=== PATIENT | female | born 1930 | race Caucasian/White ===

== ENCOUNTER 2016-02-21 14:54 | Emergency (ER) | payer OTHER, BC ==
[~2016-02-21] VITALS: Ht 157.5 cm; Wt 55.6 kg
[2016-02-21] VITALS (7 sets, daily range): BP systolic 158–207; BP diastolic 69–96; PULSE 74–86; TEMP 36.8; O2SAT 94–99; Ht 157.5 cm; Wt 55.6 kg
[~2016-02-21 14:54] MED LIST: ACET-1311 PO; ACET1TAB84 PO; AMOX500C3 PO; BISA10SU5 PR; CALCTAB5 PO; CARB25TA16 PO; CHOL100010 PO; DOCU-94 PO; ESCI10TA17 PO; METO25TA3 PO; SIMV40TA2 PO; SODIENE PR; TRAM-10 PO
[2016-02-21] MEDS ORDERED: SODIUM CHLORIDE 0.9% 1000ML 1,000 ML IV STA (15:26)
[2016-02-21] MEDS ORDERED: ONDANSETRON INJ 2 MG/ML 2 ML VIAL IV STA (15:26)
--- NOTE | 2016-02-21 15:32 | DIAGNOSTIC IMAGING REPORT ---
RIGHT HIP 2 VIEWS CLINICAL HISTORY: Right hip pain. FINDINGS: AP and crosstable lateral views of the right hip are correlated with skeletal survey dated 05/20/2010. The skeletal structures are osteopenic. A right hip arthroplasty is again noted. There is superior and posterior dislocation of the femoral component of the arthroplasty. No periprosthetic lucency is identified. No acute fracture is seen. Sclerotic change is noted in the right sacroiliac joint. Mild soft tissue edema is present in the right thigh. IMPRESSION: 1. There is superior/posterior dislocation of the femoral component of the right hip arthroplasty with overlying soft tissue edema. 2. No fracture is seen. Electronically signed by: Brant Howe M.D. 02/21/2016 3:30 PM Dictated Date/Time: 02/21/2016 3:29 PM
[2016-02-21] MEDS: HYDROmorphone INJ 0.5 MG/0.5 ML SYR IV PRN ×2 (15:36→16:15)
[2016-02-21] MEDS ORDERED: NAPR1TAB9 PO (15:49)
[2016-02-21] MEDS ORDERED: MENT5PAD4 TOP (15:49)
[2016-02-21] MEDS ORDERED: POLY335019 PO (15:49)
[2016-02-21] MEDS ORDERED: CARB25TA12 PO (15:49)
[2016-02-21] MEDS ORDERED: PANT40TA PO (15:49)
[2016-02-21] MEDS ORDERED: POTA20TA16 PO (15:49)
[2016-02-21] MEDS ORDERED: THIA100T11 PO (15:49)
[2016-02-21] MEDS ORDERED: B-COTAB18 PO (15:49)
[2016-02-21 16:00] LABS: BASO % 0.2 %; BASO ABS # 0.01 K/uL (0-0.2); COMPLETE YES; EOS % 0.7 %; HEMATOCRIT 34.7 % (37-47); IG% 0.2 %; LYMPH % 15.3 %; LYMPH ABS # 0.67 K/uL (1.2-3.4); MEAN CELL VOLUME 90.8 fL (80-100); MEAN CORPUSCULAR HEMOGLOBIN 31.7 pg (25-34); MEAN CORPUSCULAR HGB CONC 34.9 g/dl (32-36); MEAN PLATELET VOLUME 10.3 fL (7.4-10.4); MONO % 8.4 %; NEUT % 75.2 %; PLATELET COUNT 158 K/uL (130-400); RED BLOOD COUNT 3.82 M/uL (4.2-5.4); WHITE BLOOD COUNT 4.38 K/uL (4.8-10.8)
[2016-02-21 16:16] LABS: PROTHROMBIN TIME (PATIENT) 10.7 SECONDS (9.0-12.0)
[2016-02-21 16:17] LABS: CALCIUM 9.1 mg/dl (8.5-10.1); CREATININE 0.81 mg/dl (0.60-1.20); POTASSIUM 4.3 mmol/L (3.5-5.1)
--- NOTE | 2016-02-21 16:27 | EMERGENCY ROOM VISIT NOTE ---
Pre-Mod Sedation Assessment General Date of Moderate Sedation: Feb 21, 2016. Vital Signs: Vital Signs Past 12 Hours Date Time Temp Pulse Resp B/P Pulse Ox O2 Delivery O2 Flow Rate FiO2 02/21/16 16:22 76 20 140/97 02/21/16 15:43 68 20 175/73 95 Room Air 02/21/16 15:26 73 02/21/16 15:07 36.6 71 22 200/82 97 Room Air Review Cardiovascular: regular rate, rhythm, no edema, normal peripheral pulses, + systolic murmur Abdomen: non tender, soft Lungs: lungs clear Airway Class: I Pre-Sedation Airway Assessment Short Thick Neck: No Hx of Sleep Apnea: No Smoking Status: Never Smoker Mallampati Classification: Class I ASA Classification: Class I Procedure Planning Contraindications-for Mod Sed: None Notes The planned sedation has been discussed with the patient and consent obtained. I have identified the patient, determined the appropriateness of sedation and have assessed the patient immediately prior to the procedure. All medicine(s) and interventions are by my order.
[2016-02-21] MEDS ORDERED: PROPOFOL IV EMULSION 10 MG/ML 20 ML VIAL IV ONE (16:35)
--- NOTE | 2016-02-21 17:09 | DIAGNOSTIC IMAGING REPORT ---
RIGHT HIP UNILATERAL 1 VIEW CLINICAL HISTORY: Post reduction. COMPARISON: Right hip radiograph 12/10/2016 3:20 PM FINDINGS: Alignment of the right hip arthroplasty is anatomic post reduction. No fracture is identified on this single AP projection. Trabecular coarsening and cortical thickening within the right hemipelvis is suggestive of Paget's disease. IMPRESSION: Anatomic alignment of the right hip arthroplasty following reduction. No fracture. Electronically signed by: Juancho Rock M.D. 02/21/2016 5:06 PM Dictated Date/Time: 02/21/2016 5:05 PM
--- NOTE | 2016-02-21 18:46 | ORTHOPEDIC CONSULTATION ---
DATE OF CONSULTATION: 02/21/2016 EMERGENCY ROOM CONSULTATION CHIEF COMPLAINT: Right hip pain. HISTORY OF PRESENT ILLNESS: The patient is an 85-year-old female who had previously undergone a right total hip arthroplasty in around [id number]. She had not had any difficulty with the hip until today. She was bending down, felt a pop in the hip. She presented to the Emergency Room, s-rays demonstrated a posteriorly dislocated right total hip arthroplasty. No fracture was seen. Complaining of pain in the hip. Denies radicular pain. Denies numbness or tingling in the extremity. Denies loss of consciousness. PAST MEDICAL HISTORY: Hypertension, arthritis, low back pain, coronary artery disease. PAST SURGICAL HISTORY: Includes open reduction internal fixation right acromion, right reverse total shoulder arthroplasty, right total hip arthroplasty, bilateral total knee replacements as well as revision total knee replacements. SOCIAL HISTORY: Lives in a single lisa home and is retired. FAMILY HISTORY: Noncontributory. MEDICATIONS: Zocor, vitamin D, Ecotrin, Toprol-XL, Lexapro, Caltrate, Tylenol, promethazine, and Garfield. ALLERGIES: No known drug allergies. FAMILY HISTORY: Noncontributory. REVIEW OF SYSTEMS: As above. PHYSICAL EXAMINATION: VITAL SIGNS: Afebrile. Vitals stable. GENERAL: Alert and oriented x3, in no acute distress. Mood and affect are normal. She is pleasant and cooperative with examination. HEENT: Atraumatic. CHEST: Clear. CARDIOVASCULAR: Regular rate and rhythm. ABDOMEN: Soft, nontender. EXTREMITIES: Examination of right lower extremity: The limb is shortened and internally rotated. Palpable dorsalis pedis pulse. Light touch sensation and motor function is intact in the foot. Examination of contralateral limb is unremarkable. IMAGING DATA: X-rays of the hip demonstrate a posterior superiorly dislocated right total hip arthroplasty. Post-reduction x-rays demonstrate reduction of the hip joint. ASSESSMENT: Right hip total joint dislocation. PLAN: In the Emergency Room, Dr. Stearns performed sedation and I performed a closed reduction of the right hip. She tolerated this well. We will place her in a knee immobilizer brace to limit hip flexion. She may be weightbearing as tolerated. She tolerated the procedure well. She may be discharged to home.
--- NOTE | 2016-02-21 19:24 | OPERATIVE REPORT ---
DATE OF OPERATION: 02/21/2016 PREPROCEDURE DIAGNOSIS: Right hip total hip dislocation. POSTPROCEDURE DIAGNOSIS: Same. PROCEDURE: Closed reduction, right total hip. SURGEON: Dr. Schmitt. MANAGER VOICE: None. ANESTHESIA: Moderate sedation performed by Dr. Stearns. COMPLICATIONS: None. INDICATIONS: The patient is an 85-year-old female who in 1993 had undergone a right total hip arthroplasty. She had done well and had no difficulties with the hip until today. She was bending over and felt a pop in the hip. I have discussed sedation and reduction and she wished to proceed. DESCRIPTION OF PROCEDURE: The patient was identified, laterality was confirmed. She received moderate sedation per Dr. Stearns. When she was appropriately sedated, I performed a closed reduction maneuver with 90:90 traction of the hip. We had all level as well as palpable reduction of the hip, leg lengths were restored back to normal. X-ray of the hip demonstrated concentric reduction. She tolerated the procedure well. Knee immobilizer was placed. I attest to the content of the Intraoperative Record and any orders documented therein. Any exceptio ns are noted below.
[2016-02-21] MEDS ORDERED: HYDR-5688 PO (20:05)
[2016-02-21] MEDS ORDERED: NORCO 5/325MG HOME PACK PO ONE (20:15)
--- NOTE | 2016-02-21 22:34 | EMERGENCY ROOM VISIT NOTE ---
Post-Moderate Sedation Plan General Date of Moderate Sedation Feb 21, 2016. Vital Signs: Vital Signs Past 12 Hours Date Time Temp Pulse Resp B/P Pulse Ox O2 Delivery O2 Flow Rate FiO2 02/21/16 20:24 81 20 158/69 94 02/21/16 19:30 79 20 167/88 96 Room Air 02/21/16 18:10 85 18 155/82 95 Room Air 02/21/16 17:25 36.8 86 18 181/71 94 Room Air 02/21/16 17:19 02/21/16 17:10 36.8 85 18 192/96 94 Room Air 02/21/16 16:55 74 16 171/72 97 Nasal Cannula 2.0 02/21/16 16:50 79 16 179/85 99 Nasal Cannula 2.0 02/21/16 16:45 79 20 207/84 98 Nasal Cannula 2.0 02/21/16 16:35 36.8 79 20 207/84 97 Room Air 02/21/16 16:22 76 20 140/97 02/21/16 15:43 68 20 175/73 95 Room Air 02/21/16 15:26 73 02/21/16 15:07 36.6 71 22 200/82 97 Room Air Review - Discharge Plan Post Moderate Sedation Plan: On clinical assessment, the patient appears to have tolerated the conscious sedation without complications. Patient is recovering as anticipated. Patient will continue to be monitored by nursing and may be discharged when conscious sedation discharge criteria are met.
--- NOTE | 2016-02-21 22:38 | EMERGENCY ROOM VISIT NOTE ---
History Report prepared by Joes: Phoebe Bray Under the Supervision of: Dr. Harman Stearns M.D. First contact with patient: 15:16 Chief Complaint: HIP PAIN Stated Complaint: HIP PAIN History of Present Illness The patient is a 85 year old female who presents to the Emergency Room via ALS from [facility] with complaints of right hip pain that began this afternoon. The patient was sitting in a chair and when she shifted her weight to cross her legs, she had a popping sensation to the right hip and sudden onset pain, which has been constant since then. Her pain is worse with any movement of her right leg. She was given 50 mcg Fentanyl en route. Her current discomfort is a 10/10 in severity. She denies any other injuries. The patient has a history of a right hip replacement in 1996. Her most recent full meal today was 3 hours ago. Pt denies LOC, headache, visual changes, neck pain, chest pain, breathing difficulties, nausea, vomiting, abdominal pain, back pain , numbness, weakness, open wounds, active bleeding, or other complaints. Source of History: patient Onset: this afternoon Position: other (right hip) Symptom Intensity: 10/10 Timing: constant Modifying Factors (Worsening): movement Review of Systems See HPI for pertinent positives and negatives. A total of ten systems were reviewed and were otherwise negative. 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 (3) S/p ORIF right acromion (4) S/P tonsillectomy Family History No pertinent family history Social History Smoking Status: Never Smoker Alcohol Use: none Housing Status: assisted living Occupation Status: unemployed Current/Historical Medications Scheduled Acetaminophen (Tylenol Arthritis Ext Rel), 650 MG PO TID B-Complex Vitamins (Vitamin B Complex), 1 TAB PO QAM Calcium (Caltrate), 600 MG PO QAM Carbidopa/Levodopa (Sinemet 25MG/100MG), 2 TAB PO TID Cholecalciferol (Vitamin D), 1,000 INTER.UNIT PO QAM Escitalopram (Lexapro), 20 MG PO QAM Menthol (Topical Analgesic) (Icy Hot Patch), 1 PATCH TOP QAM Metoprolol Succ (Toprol Xl) (Toprol-Xl), 25 MG PO QAM Pantoprazole (Protonix), 40 MG PO QAM Polyethylene Glycol 3350 (Miralax), 17 GM PO QAM Potassium Ext Rel (Klor-Con), 20 MEQ PO QAM Simvastatin (Zocor), 40 MG PO QPM Thiamine Hcl (Vitamin B-1), 100 MG PO QAM Scheduled PRN Hydrocodone/Acetaminophen 5MG/325MG (Sweet [place] 5MG/325MG), 0.5-2 TABS PO Q6H PRN for Pain Naproxen (Aleve), 220 MG PO Q12 PRN for Pain Allergies Coded Allergies: CI Pigment Blue 63 (Unverified Allergy, Unknown, ? reaction- obtained from neuro note , 02/21/16) Duloxetine (Unverified Allergy, Unknown, ? reaction- obtained from neuro note , 02/21/16) Milnacipran (Unverified Allergy, Unknown, ? reaction- obtained from neuro note , 02/21/16) Physical Exam Vital Signs Date Time Temp Pulse Resp B/P Pulse Ox O2 Delivery O2 Flow Rate FiO2 02/21/16 20:24 81 20 158/69 94 02/21/16 19:30 79 20 167/88 96 Room Air 02/21/16 18:10 85 18 155/82 95 Room Air 02/21/16 17:25 36.8 86 18 181/71 94 Room Air 02/21/16 17:19 02/21/16 17:10 36.8 85 18 192/96 94 Room Air 02/21/16 16:55 74 16 171/72 97 Nasal Cannula 2.0 02/21/16 16:50 79 16 179/85 99 Nasal Cannula 2.0 02/21/16 16:45 79 20 207/84 98 Nasal Cannula 2.0 02/21/16 16:35 36.8 79 20 207/84 97 Room Air 02/21/16 16:22 76 20 140/97 02/21/16 15:43 68 20 175/73 95 Room Air 02/21/16 15:26 73 02/21/16 15:07 36.6 71 22 200/82 97 Room Air Physical Exam GENERAL: Awake, alert, very uncomfortable-appearing, in mild distress HENT: Normocephalic, atraumatic. Oropharynx unremarkable. EYES: Normal conjunctiva. Sclera non-icteric. NECK: Supple. No nuchal rigidity. FROM. No JVD. RESPIRATORY: Clear to auscultation. CARDIAC: Regular rate, normal rhythm. Extremities warm and well perfused. Pulses equal. ABDOMEN: Soft, non-distended. No tenderness to palpation. No rebound or guarding. No masses. RECTAL: Deferred. MUSCULOSKELETAL: Chest examination reveals no tenderness. The back is symmetrical on inspection without obvious abnormality. There is no CVA tenderness to palpation. No joint edema. LOWER EXTREMITIES: Range of motion of the right hip is limited secondary to pain. Tenderness to the right hip. Right leg is shortened and internally rotated at the hip. The remainder of the right lower extremity is atraumatic. Calves are equal size bilaterally and non-tender. No edema. No discoloration. NEURO: Normal sensorium. No sensory or motor deficits noted. SKIN: No rash or jaundice noted. Medical Decision & Procedures ER Provider Diagnostic Interpretation: X-ray: Per my interpretation, radiologist review. RIGHT HIP 2 VIEWS CLINICAL HISTORY: Right hip pain. FINDINGS: AP and crosstable lateral views of the right hip are correlated with skeletal survey dated 05/20/2010. The skeletal structures are osteopenic. A right hip arthroplasty is again noted. There is superior and posterior dislocation of the femoral component of the arthroplasty. No periprosthetic lucency is identified. No acute fracture is seen. Sclerotic change is noted in the right sacroiliac joint. Mild soft tissue edema is present in the right thigh. IMPRESSION: 1. There is superior/posterior dislocation of the femoral component of the right hip arthroplasty with overlying soft tissue edema. 2. No fracture is seen. Electronically signed by: Brant Howe M.D. 02/21/2016 3:30 PM Dictated Date/Time: 02/21/2016 3:29 PM RIGHT HIP UNILATERAL 1 VIEW CLINICAL HISTORY: Post reduction. COMPARISON: Right hip radiograph 12/10/2016 3:20 PM FINDINGS: Alignment of the right hip arthroplasty is anatomic post reduction. No fracture is identified on this single AP projection. Trabecular coarsening and cortical thickening within the right hemipelvis is suggestive of Paget's disease. IMPRESSION: Anatomic alignment of the right hip arthroplasty following reduction. No fracture. Electronically signed by: Juancho Rock M.D. 02/21/2016 5:06 PM Dictated Date/Time: 02/21/2016 5:05 PM Laboratory Results 02/21/16 15:39 Red Blood Count 3.82, Mean Corpuscular Volume 90.8, Mean Corpuscular Hemoglobin 31.7, Mean Corpuscular Hemoglobin Concent 34.9, Mean Platelet Volume 10.3, Neutrophils (%) (Auto) 75.2, Lymphocytes (%) (Auto) 15.3, Monocytes (%) (Auto) 8.4, Eosinophils (%) (Auto) 0.7, Basophils (%) (Auto) 0.2, Neutrophils # (Auto) 3.29, Lymphocytes # (Auto) 0.67, Monocytes # (Auto) 0.37, Eosinophils # (Auto) 0.03, Basophils # (Auto) 0.01 02/21/16 15:39 Test 02/21/16 15:39 White Blood Count 4.38 K/uL (4.8-10.8) Red Blood Count 3.82 M/uL (4.2-5.4) Hemoglobin 12.1 g/dL (12.0-16.0) Hematocrit 34.7 % (37-47) Mean Corpuscular Volume 90.8 fL (80-100) Mean Corpuscular Hemoglobin 31.7 pg (25-34) Mean Corpuscular Hemoglobin Concent 34.9 g/dl (32-36) Platelet Count 158 K/uL (130-400) Mean Platelet Volume 10.3 fL (7.4-10.4) Neutrophils (%) (Auto) 75.2 % Lymphocytes (%) (Auto) 15.3 % Monocytes (%) (Auto) 8.4 % Eosinophils (%) (Auto) 0.7 % Basophils (%) (Auto) 0.2 % Neutrophils # (Auto) 3.29 K/uL (1.4-6.5) Lymphocytes # (Auto) 0.67 K/uL (1.2-3.4) Monocytes # (Auto) 0.37 K/uL (0.11-0.59) Eosinophils # (Auto) 0.03 K/uL (0-0.5) Basophils # (Auto) 0.01 K/uL (0-0.2) RDW Standard Deviation 43.8 fL (36.4-46.3) RDW Coefficient of Variation 13.2 % (11.5-14.5) Immature Granulocyte % (Auto) 0.2 % Immature Granulocyte # (Auto) 0.01 K/uL (0.00-0.02) Prothrombin Time 10.7 SECONDS (9.0-12.0) Prothromb Time International Ratio 1.0 (0.9-1.1) Activated Partial Thromboplast Time 25.4 SECONDS (21.0-31.0) Partial Thromboplastin Ratio 1.0 Anion Gap 8.0 mmol/L (3-11) Est Creatinine Clear Calc Drug Dose 40.2 ml/min Estimated GFR () 76.8 Estimated GFR (Non- 66.2 BUN/Creatinine Ratio 28.0 (10-20) Calcium Level 9.1 mg/dl (8.5-10.1) Laboratory results reviewed by me Medications Administered Medications (Trade) Dose Ordered Sig/Genet Route Start Time Stop Time Status Last Admin Dose Admin Hydromorphone HCl (Dilaudid Inj) 0.5 mg Q10M PRN IV 02/21/16 15:30 02/21/16 20:50 DC 02/21/16 16:15 0.5 MG Ondansetron HCl 4 mg 4 mg NOW STAT IV 02/21/16 15:26 02/21/16 15:27 DC 02/21/16 15:36 4 MG Sodium Chloride (Nss 1000ml) 1,000 ml @ 125 mls/hr Q8H STAT IV 02/21/16 15:26 02/21/16 20:50 DC 02/21/16 15:26 125 MLS/HR Acetaminophen/ Hydrocodone Bitart (Sweet [place] 5/325mg Home Pack) 1 homepack UD ONCE PO 02/21/16 20:15 02/21/16 20:16 DC 02/21/16 20:18 1 HOMEPACK Procedure Procedural Sedation Indication Right hip dislocation. Total time: 16 minutes. Written consent was obtained after the risks and benefits were explained to the patient, including, but not limited to aspiration, allergic reaction, breathing difficulties, cardiac complications, vomiting, pain, event recall, bleeding, and /or infection. Pre-sedation examination and paperwork completed. The patient was on 100% oxygen via NRB prior to the procedure. Continous end tidal CO2 monitoring, pulse oximetry, and cardiac monitoring were utilized. Suction, airway equipment, medications, respiratory equipment, and appropriate personnel were prepared prior to the initiation of the procedure. A time out was taken. Sedation was achieved utilizing 40 mg of Propofol. After I observed the patient had reached the appropriate level of sedation the main procedure was performed without complication. Sedation was discontinued and the monitoring continued. The patient recovered quickly from the effects of the medication without complication or adverse event. ED Course 1522: The patient was evaluated in room C6. A complete history and physical exam was performed. 1526: Ordered NSS 1000 ml @ 125 mls/hr IV, Zofran Inj 4 mg IV, Dilaudid Inj 0.5 mg IV. 1558: I discussed the case with Dr. Schmitt - Orthopedic Surgery. He will see the patient. 1639: I performed a procedural sedation while Dr. Schmitt relocated the patient' s hip. See procedure note above. 1928: I reevaluated the patient. She was feeling much better. Discussed results and discharge instructions: She verbalized understanding and agreement. The patient is ready for discharge. Medical Decision Prior records reviewed and summarized above. Triage Nursing notes reviewed and agree them. The patient's history was concerning for traumatic injury. Differential diagnosis: Etiologies such as fracture, dislocation, neurovascular compromise, compartment syndrome, soft tissue injury, as well as others were entertained. Physical examination: Consistent with an isolated right hip injury. ER treatment provided: Normal saline hydration IV Dilaudid and IV Zofran On reassessment the patient felt better. Procedural sedation by me and hip reduction by orthopedics Diagnostics interpreted by me: The labs revealed an unremarkable CBC, coags, and chemistry panel. Imaging studies: Xrays as above. Consultation: A consultation was placed with the orthopedist, Dr Sen. [email or web address] The case was discussed and diagnostics were reviewed. The patient was evaluated in the ER for further treatment. The patient has an isolated right hip fracture and she was sedated by me. This was done 4 hours after she had her last oral intake. The indication was emergent as she had the dislocated hip. The patient was given a 0.5 mg/kg bolus of propofol and then an additional 15 mg and that worked very well to make her lightly sedated and unaware of the situation. Hip was easily reduced by orthopedics. The patient recovered uneventfully. She was placed in a knee immobilizer as directed by orthopedics. She will be treated with low-dose hydrocodone. I did discuss risks and benefits of this medication. She will start with a half pill. She will follow-up with orthopedics next week. The patient was kept in the emergency department for an extended. She recovered without difficulty. She was able to ambulate. Family presented to the Emergency Room. I went over all the issues with her.I gave my usual and customary discussion regarding this issue. By the evaluation outlined above emergent etiologies such as fracture, neurovascular compromise, compartment syndrome, infections, as well as others were deemed relatively unlikely. The patient and family were informed about the findings as listed above. All questions were answered and they were pleased with the treatment. Return instructions were outlined and the patient was discharged in stable condition. Prescription management: Hydrocodone Referral: The patient was referred to [facility] for follow-up care. The chart was completed utilizing [employer] Speech voice recognition software. Grammatical errors, random word insertions, pronoun errors, and incomplete sentences are an occasional consequence of this system due to software limitations, ambient noise, and hardware issues. Any formal questions or concerns about the content, text, or information contained within the body of this dictation should be directly addressed to the physician for clarification. Consults Time Called: 1523 Consulting Physician: Dr. Schmitt - Orthopedic Surgery Returned Call: [phone] I discussed the case with him. He will see the patient. Impression Primary Impression: Dislocation of hip, right, closed Scribe Attestation The scribe's documentation has been prepared under my direction and personally reviewed by me in its entirety. I confirm that the note above accurately reflects all work, treatment, procedures, and medical decision making performed by me. Departure Information Dispostion Home / Self-Care Prescriptions Hydrocodone/Acetaminophen 5MG/325MG ([place] 5MG/325MG) Tab 0.5-2 TABS PO Q6H Y for Pain, #20 TAB Prov: Harman Stearns MD 02/21/16 Referrals [facility] (PCP) Patient Instructions A Signature Page, My [facility] Additional Instructions ORTHOPEDIC INSTRUCTIONS: Diagnosis: Hip dislocation DO NOT drive, drink alcohol, operate machinery, or perform dangerous activities today. You were given medications in the ER that can affect your ability to safely function or operate a vehicle. Hydrocodone/acetaminophen 5/325mg: Take 0.5-2 pills every 6 hours as needed for pain. Avoid additional Acetaminophen/Tylenol, alcohol, operating machinery or dangerous equipment, working on ladders or roofs, DRIVING, or situations where being under the influence may be dangerous. It is recommended to use a stool softener such as Colace, 100mg twice daily while taking this medication to avoid constipation. Ice compresses for 20 minutes at a time four times daily for 2-3 days. Use the walker and knee immobilizer as instructed by orthopedics. Rest your injury. Return to the ER immediately for any numbness, tingling, severe pain, extreme swelling in the extremity or as needed. Call [facility], [phone], Wednesday to arrange follow up for your injury with Dr Schmitt.
== END 2016-02-21 20:26 | disposition home or self-care (01) ==
LOC: EDBD 14:54 → C.EDC 14:55 → C.EDB 20:26
DX: T84.020A Dislocation of internal right hip prosthesis, initial encounter (principal); X50.1XXA Overexertion from prolonged static or awkward postures, initial encounter; Y92.098 Other place in other non-institutional residence as the place of occurrence of the external cause; I10 Essential (primary) hypertension; I25.10 Atherosclerotic heart disease of native coronary artery without angina pectoris; Z96.641 Presence of right artificial hip joint; E78.5 Hyperlipidemia, unspecified; M19.90 Unspecified osteoarthritis, unspecified site; G93.41 Metabolic encephalopathy; Z96.653 Presence of artificial knee joint, bilateral; Z79.899 Other long term (current) drug therapy

== ENCOUNTER 2016-03-15 13:07 | Emergency (ER) | payer OTHER, BC ==
[~2016-03-15] VITALS: Ht 157.5 cm; Wt 49.4 kg
[~2016-03-15 13:07] MED LIST changes: -ACET-1311 PO; -AMOX500C3 PO; +B-COTAB18 PO; -BISA10SU5 PR; +CARB25TA12 PO; -CARB25TA16 PO; -DOCU-94 PO; +HYDR-5688 PO; +MENT5PAD4 TOP; +NAPR1TAB9 PO; +PANT40TA PO; +POLY335019 PO; +POTA20TA16 PO; -SODIENE PR; +THIA100T11 PO; -TRAM-10 PO
[2016-03-15 13:17] VITALS: TEMP 36.5; Ht 157.5 cm; Wt 49.4 kg
[2016-03-15] MEDS ORDERED: ONDANSETRON INJ 2 MG/ML 2 ML VIAL IV PRN (13:30)
--- NOTE | 2016-03-15 13:30 | EMERGENCY ROOM VISIT NOTE ---
History Report prepared by Jose: Nishant Joseph Under the Supervision of: Dr. Wali Hays M.D. First contact with patient: 13:18 Chief Complaint: HIP PAIN Stated Complaint: RIGHT HIP DISLOCATION History of Present Illness The patient is a 85 year old female who presents to the Emergency Room via EMS with complaints of sharp right hip pain that began [employer]. She rates her pain a 10/ 10 in severity. The patient was seen in the ED on 21 February 2016 for a hip dislocation as well. She has a past medical history of a right hip replacement. The patient was sitting in a chair, when she lifted her leg and her hip dislocated. She notes that she had toast and coffee at 0800 this morning. She is experiencing shakiness secondary to her pain. She denies any nausea. Source of History: patient Onset: [employer] Position: other (hip - right) Symptom Intensity: 10/10 Quality: sharp Timing: other (persistent) Associated Symptoms: No nausea Note: She is experiencing some shakiness from her pain. Review of Systems All systems have been listed, reviewed, and are negative other than those previously mentioned. Please see Additional Medical History Sheet. 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 (3) S/p ORIF right acromion (4) S/P tonsillectomy Family History No pertinent family history Social History Smoking Status: Never Smoker Alcohol Use: none Drug Use: none Housing Status: assisted living Occupation Status: unemployed Current/Historical Medications Scheduled Acetaminophen (Tylenol Arthritis Ext Rel), 650 MG PO TID B-Complex Vitamins (Vitamin B Complex), 1 TAB PO QAM Calcium (Caltrate), 600 MG PO QAM Carbidopa/Levodopa (Sinemet 25MG/100MG), 2 TAB PO TID Docusate Sodium (Colace), 1 CAP PO BID Escitalopram (Lexapro), 20 MG PO QAM Menthol (Topical Analgesic) (Icy Hot Patch), 1 PATCH TOP QAM Metoprolol Succ (Toprol Xl) (Toprol-Xl), 25 MG PO QAM Pantoprazole (Protonix), 40 MG PO QAM Polyethylene Glycol 3350 (Miralax), 17 GM PO QAM Potassium Ext Rel (Klor-Con), 20 MEQ PO QAM Simvastatin (Zocor), 40 MG PO QPM Thiamine Hcl (Vitamin B-1), 100 MG PO DAILY Scheduled PRN Naproxen (Aleve), 220 MG PO Q12 PRN for Pain Allergies Coded Allergies: Tramadol (Unverified Allergy, Intermediate, "GOES CRAZY", 03/15/16) CI Pigment Blue 63 (Unverified Allergy, Unknown, ? reaction- obtained from neuro note , 02/21/16) Duloxetine (Unverified Allergy, Unknown, ? reaction- obtained from neuro note , 02/21/16) Milnacipran (Unverified Allergy, Unknown, ? reaction- obtained from neuro note , 02/21/16) Physical Exam Vital Signs Date Time Temp Pulse Resp B/P Pulse Ox O2 Delivery O2 Flow Rate FiO2 03/15/16 16:00 76 18 178/62 94 Room Air 03/15/16 15:42 72 18 188/70 93 Room Air 03/15/16 15:25 79 18 118/66 96 Room Air 03/15/16 15:20 75 20 178/69 96 Room Air 03/15/16 15:10 68 18 117/57 99 Non-Rebreather 03/15/16 15:04 68 18 148/46 98 Room Air 03/15/16 15:00 68 16 155/64 90 Non-Rebreather 10.0 03/15/16 15:00 64 16 151/62 99 Non-Rebreather 10.0 03/15/16 14:55 68 18 151/62 98 Room Air 03/15/16 14:42 73 16 177/78 94 Room Air 03/15/16 13:48 68 03/15/16 13:22 97 Room Air 03/15/16 13:17 36.5 80 24 199/76 97 Room Air Physical Exam GENERAL: Patient awake, alert, oriented x 3. Patient follows commands. Patient does not appear toxic. Patient is adequately hydrated and well- nourished. SKIN: No erythema, pallor, cyanosis or rash HEENT: Normal head, pupils equal, reactive to light and accommodation. LUNGS: Clear to auscultation. No wheezes, no rales, no rhonchi. HEART: 2/6 systolic murmur. No gallops. No rubs. ABDOMEN: Soft, nontender. EXTREMITIES: No signs of trauma. No pedal or pretibial edema. No calf or thigh tenderness. Right hip is internally rotated. There is a well healed scar over the right hip. NEUROLOGIC: Cranial nerves II-XII within normal limits. No gross motor sensory function deficits. Medical Decision & Procedures ER Provider Diagnostic Interpretation: X ray results are stated below per my interpretation and the radiologist's interpretation. RIGHT HIP 2 VIEWS CLINICAL HISTORY: Right hip pain. FINDINGS: AP and crosstable lateral views of the right hip are correlated with a prior study on 02/21/2016. The skeletal structures are osteopenic. A right hip arthroplasty is again noted. There is superior and posterior dislocation of the femoral component of the arthroplasty. No periprosthetic lucency is identified. No acute fracture is seen. Sclerotic change is noted in the right sacroiliac joint. Mild soft tissue edema is present in the right thigh. IMPRESSION: 1. There is superior/posterior dislocation of the femoral component of the right hip arthroplasty with overlying soft tissue edema. 2. No fracture is seen. Electronically signed by: Jun Jacobson M.D. 03/15/2016 1:52 PM Dictated Date/Time: 03/15/2016 1:51 PM RIGHT HIP UNILATERAL 1 VIEW CLINICAL HISTORY: RIGHT HIP DISLOCATION Right dislocation COMPARISON: Prior study same date DISCUSSION: Anatomic alignment status post closed reduction. No evidence dislocation. Coarsening trabecular pattern right hemipelvis considered chronic. IMPRESSION: Anatomic alignment status post closed reduction Electronically signed by: Bean Morales M.D. 03/15/2016 3:20 PM Dictated Date/Time: 03/15/2016 3:19 PM Laboratory Results 03/15/16 14:38 03/15/16 14:38 Test 03/15/16 14:38 Red Blood Count 3.56 M/uL (4.2-5.4) Mean Corpuscular Volume 91.3 fL (80-100) Mean Corpuscular Hemoglobin 31.5 pg (25-34) Mean Corpuscular Hemoglobin Concent 34.5 g/dl (32-36) RDW Standard Deviation 43.7 fL (36.4-46.3) RDW Coefficient of Variation 13.0 % (11.5-14.5) Mean Platelet Volume 10.0 fL (7.4-10.4) Anion Gap 9.0 mmol/L (3-11) Est Creatinine Clear Calc Drug Dose 42.8 ml/min Estimated GFR () 84.2 Estimated GFR (Non- 72.7 BUN/Creatinine Ratio 29.5 (10-20) Calcium Level 8.6 mg/dl (8.5-10.1) Laboratory results as stated above per my review. Medications Administered Medications (Trade) Dose Ordered Sig/[facility] Route Start Time Stop Time Status Last Admin Dose Admin Morphine Sulfate (MoRPHine SULFATE INJ) 6 mg Q1H PRN IV 03/15/16 13:30 03/15/16 16:39 DC 03/15/16 14:42 6 MG Procedure Procedural Sedation Indication: Right hip dislocation. Total time: 20 minutes. Written consent was obtained after the risks and benefits were explained to the patient, including, but not limited to aspiration, allergic reaction, breathing difficulties, cardiac complications, vomiting, pain, event recall, bleeding, and /or infection. Pre-sedation examination and paperwork completed. The patient was on room air prior to the procedure. Continuous end tidal CO2 monitoring, pulse oximetry, and cardiac monitoring were utilized. Suction, airway equipment , medications, respiratory equipment, and appropriate personnel were prepared prior to the initiation of the procedure. A time out was taken. Sedation was achieved utilizing 25 mg of Propofol. After I observed the patient had reached the appropriate level of sedation the main procedure was performed without complication. Sedation was discontinued and the monitoring continued. The patient recovered quickly from the effects of the medication without complication or adverse event. ECG Indication: other (hip pain) Rate (beats per minute): 66 Rhythm: normal sinus Findings: no acute ischemic change, no ectopy, other (Left ventricular hypertrophy) ED Course 1318: Past medical records reviewed. The patient was evaluated in room B7. A complete history and physical examination was performed. 1330: Zofran Inj 4 mg IV, Morphine Sulfate 6 mg IV 1430: I called Dr. Vegas of [facility] at this time. He will be coming to the ED to reduce the patient's hip. 1450: Propofol 200 mg IV 1455: I performed a Procedural Sedation at this time. Please see the procedure note. 1605: I informed the patient and her son at this time. We discussed her results. She is ready to be discharged. 1620: Upon reevaluation, the patient appeared to have improvement of her symptoms. I discussed today's findings with her. She verbalized agreement of the treatment plan. She was discharged home. Medical Decision Nurses notes reviewed. Medical history sheet reviewed. Differential diagnosis includes but is not limited to: hip fracture and hip dislocation. The patient was treated for right hip dislocation. She has had another similar dislocation earlier this month. Labs, EKG and imaging were obtained prior to reduction to make sure the patient was safe for the procedure. A preprocedural evaluation was performed. Consent was signed. The hip was reduced using conscious sedation. I performed the conscious sedation while Dr. Vegas did the actual reduction. Patient tolerated the procedure well. Post op x-ray reveals the hip is back in place. The patient will require follow-up by orthopedics. The patient may require some further intervention to prevent future dislocations. Consults Time Called: 1430 Consulting Physician: Dr. Vegas - [facility] Returned Call: [phone] He will be coming to the ED to reduce the patient's hip. Impression Primary Impression: Dislocation of hip, right, closed Scribe Attestation The scribe's documentation has been prepared under my direction and personally reviewed by me in its entirety. I confirm that the note above accurately reflects all work, treatment, procedures, and medical decision making performed by me. Departure Information Dispostion Home / Self-Care Referrals [facility] (PCP) Andres Vegas D.O. Forms HOME CARE DOCUMENTATION FORM, IMPORTANT VISIT INFORMATION, WORK / SCHOOL INSTRUCTIONS Patient Instructions My [facility] Additional Instructions Continue all of your current medications as prescribed. Follow-up with with orthopedics this week. Call for an appointment on Wednesday.
[2016-03-15] MEDS: MoRPHine SULFATE 10 MG/ML CARP/VIAL IV PRN ×2 (13:33→14:42)
--- NOTE | 2016-03-15 13:53 | DIAGNOSTIC IMAGING REPORT ---
RIGHT HIP 2 VIEWS CLINICAL HISTORY: Right hip pain. FINDINGS: AP and crosstable lateral views of the right hip are correlated with a prior study on 02/21/2016. The skeletal structures are osteopenic. A right hip arthroplasty is again noted. There is superior and posterior dislocation of the femoral component of the arthroplasty. No periprosthetic lucency is identified. No acute fracture is seen. Sclerotic change is noted in the right sacroiliac joint. Mild soft tissue edema is present in the right thigh. IMPRESSION: 1. There is superior/posterior dislocation of the femoral component of the right hip arthroplasty with overlying soft tissue edema. 2. No fracture is seen. Electronically signed by: Jun Jacobson M.D. 03/15/2016 1:52 PM Dictated Date/Time: 03/15/2016 1:51 PM
[2016-03-15] MEDS ORDERED: THIA100T11 PO (14:24)
[2016-03-15] MEDS ORDERED: DOCU-94 PO (14:24)
[2016-03-15 14:48] LABS: HEMATOCRIT 32.5 % (37-47); MEAN CELL VOLUME 91.3 fL (80-100); MEAN CORPUSCULAR HEMOGLOBIN 31.5 pg (25-34); MEAN CORPUSCULAR HGB CONC 34.5 g/dl (32-36); PLATELET COUNT 168 K/uL (130-400); RED BLOOD COUNT 3.56 M/uL (4.2-5.4); WHITE BLOOD COUNT 4.62 K/uL (4.8-10.8)
[2016-03-15] MEDS ORDERED: PROPOFOL IV EMULSION 10 MG/ML 20 ML VIAL IV ONE (14:50)
[2016-03-15 15:00] VITALS: BP 151/62; PULSE 64; O2SAT 99
[2016-03-15 15:04] VITALS: BP 148/46; PULSE 68; O2SAT 98
[2016-03-15 15:06] LABS: BUN/CREATININE RATIO 29.5 (10-20); CALCIUM 8.6 mg/dl (8.5-10.1); CREATININE 0.75 mg/dl (0.60-1.20); POTASSIUM 4.2 mmol/L (3.5-5.1)
[2016-03-15 15:20] VITALS: BP 178/69; PULSE 75; O2SAT 96
--- NOTE | 2016-03-15 15:22 | DIAGNOSTIC IMAGING REPORT ---
RIGHT HIP UNILATERAL 1 VIEW CLINICAL HISTORY: RIGHT HIP DISLOCATION Right dislocation COMPARISON: Prior study same date DISCUSSION: Anatomic alignment status post closed reduction. No evidence dislocation. Coarsening trabecular pattern right hemipelvis considered chronic. IMPRESSION: Anatomic alignment status post closed reduction Electronically signed by: Bean Morales M.D. 03/15/2016 3:20 PM Dictated Date/Time: 03/15/2016 3:19 PM
[2016-03-15 16:00] VITALS: BP 178/62; PULSE 76; O2SAT 94
--- NOTE | 2016-03-15 16:07 | ORTHOPEDIC CONSULTATION ---
DATE OF CONSULTATION: 03/15/2016 HISTORY OF PRESENT ILLNESS: This is an 85-year-old female seen at the request of the Emergency Department for dislocation of right total hip prosthesis. The patient was at her home in the [place] and went to cross her legs and felt a painful pop in her right hip. She is unable to ambulate. She was then transported to [facility] via EMS with x-rays performed noting a dislocation of total hip arthroplasty. The patient had previously been in the Emergency Department on 02/21/2016 for a hip dislocation, which underwent closed reduction. The patient was seen in followup with Dr. Schmitt and noted to have a reduced hip with good function and plan was to treat conservatively. The patient now presents today with redislocation of the right total hip prosthesis. PAST MEDICAL HISTORY: Osteoarthritis, metabolic encephalopathy, hypertension, fever, dyslipidemia, depression, confusion, right knee DJD. PAST SURGICAL HISTORY: Right total hip arthroplasty 20 years ago by a surgeon in the [place] area, history arthroscopy of the right shoulder, left total knee replacement, ORIF right acromion and tonsillectomy. ALLERGIES: CI PIGMENT BLUE 63, UNKNOWN REACTION; DULOXETINE, UNKNOWN REACTION; MILNACIPRAN, UNKNOWN REACTION. MEDICATIONS: Please see the medications list is in the medical record. SOCIAL HISTORY: Denies tobacco, drug or alcohol use. She lives in assisted living, in [facility] and she is retired. PHYSICAL EXAMINATION: GENERAL: This is an 85-year-old woman who is present with her son at bedside. She is alert and oriented and reasonably conversant. Obvious discomfort from right hip dislocation. EXTREMITIES: Examination of the lower extremities demonstrates an internally rotated and shortened right lower extremity. Difficulty with any active or passive range of motion of the right hip. Well-healed surgical incision is noted. Skin is warm, dry and intact. Cap refill less than 2 seconds. Dorsalis pedis and posterior pulses are palpable. Toes pink and warm. Radiographs of the right hip demonstrate dislocated right hip prosthesis. No obvious fracture, no obvious lucency around the acetabular or femoral components. There appears to be no obvious subsidence of the implants. The dislocation is a posterior dislocation. IMPRESSION: Right total hip arthroplasty dislocation, second dislocation within 30 days. RECOMMENDATIONS: For closed reduction with sedation, use of his hip precautions and consultation for possible revision arthroplasty. PROCEDURE: After obtaining written and verbal consent from the patient and her son, the patient was then monitored and the Emergency Department physician then administered sedative agents. The patient was sedated and then gentle closed reduction maneuver was performed of the right hip with closed reduction maneuver successful. The hip was reduced. Leg lengths were equal. Post-reduction radiographs were obtained noting adequate reduction of the right total hip prosthesis. No bone fractures were noted. The patient was then awakened and discharged home with hip precautions and instructions to follow up in my office for evaluation for possible revision of total hip arthroplasty. Thank you for the opportunity to consult in the care of this patient.
== END 2016-03-15 16:31 | disposition home or self-care (01) ==
LOC: EDBD 13:07 → C.EDB 13:08
DX: M24.451 Recurrent dislocation, right hip (principal); E78.5 Hyperlipidemia, unspecified; I10 Essential (primary) hypertension; F32.9 Major depressive disorder, single episode, unspecified; M19.90 Unspecified osteoarthritis, unspecified site; Z96.641 Presence of right artificial hip joint; Z98.890 Other specified postprocedural states; Z79.899 Other long term (current) drug therapy; Z88.8 Allergy status to other drugs, medicaments and biological substances

== ENCOUNTER → 2016-08-04 | Outpatient (CLI) | payer OTHER, BC ==
[~2016-08-04] MED LIST changes: +CALC-393 PO; +CHOL1000 PO; -CHOL100010 PO; +DOCU-94 PO; +MCRK20 PO; +TPRSR25 PO
[2016-08-04 11:43] LABS: BASO % 0.2 %; BASO ABS # 0.01 K/uL (0-0.2); COMPLETE YES; EOS % 0.6 %; HEMATOCRIT 37.9 % (37-47); IG% 0.2 %; LYMPH ABS # 1.21 K/uL (1.2-3.4); MEAN CORPUSCULAR HEMOGLOBIN 30.3 pg (25-34); MEAN CORPUSCULAR HGB CONC 31.9 g/dl (32-36); MEAN PLATELET VOLUME 10.5 fL (7.4-10.4); MONO % 9.3 %; NEUT % 64.7 %; PLATELET COUNT 202 K/uL (130-400); RED BLOOD COUNT 3.99 M/uL (4.2-5.4); WHITE BLOOD COUNT 4.84 K/uL (4.8-10.8)
[2016-08-04 11:55] LABS: ALT/SGPT 10 U/L (12-78); BLOOD UREA NITROGEN 22 mg/dl (7-18); BUN/CREATININE RATIO 31.1 (10-20); C-REACTIVE PROTEIN < 0.29 mg/dl (0-0.29); CARBON DIOXIDE 30 mmol/L (21-32); CHLORIDE 106 mmol/L (98-107); CREATININE 0.72 mg/dl (0.60-1.20); GLUCOSE 85 mg/dl (70-99); POTASSIUM 4.1 mmol/L (3.5-5.1); SODIUM 143 mmol/L (136-145)
[2016-08-04 11:56] LABS: ALB/GLOB RATIO 1.4 (0.9-2); ALKALINE PHOSPHATASE 107 U/L (45-117); AST/SGOT 21 U/L (15-37)
[2016-08-04 12:01] LABS: CALCIUM 9.2 mg/dl (8.5-10.1)
== END | disposition home or self-care (01) ==
LOC: C.LABVPSUW 10:31
PROVIDERS: ATTEND Internal Medicine Critical Care Medicine
DX: D64.9 Anemia, unspecified (principal); M79.1 Myalgia; M19.90 Unspecified osteoarthritis, unspecified site; I77.6 Arteritis, unspecified

== ENCOUNTER 2016-08-30 09:51 | Emergency (ER) | payer OTHER, BC ==
[~2016-08-30] VITALS: Ht 157.5 cm; Wt 49.0 kg
[~2016-08-30 09:51] MED LIST changes: -CALC-393 PO; -CHOL1000 PO; -HYDR-5688 PO; -MCRK20 PO; -TPRSR25 PO
[2016-08-30 09:57] VITALS: TEMP 36.4; Ht 157.5 cm; Wt 49.0 kg
[2016-08-30] MEDS ORDERED: CALC-393 PO (10:18)
--- NOTE | 2016-08-30 11:18 | DIAGNOSTIC IMAGING REPORT ---
LEFT KNEE 3 VIEWS CLINICAL HISTORY: eval for fx with sunrise view trauma COMPARISON: None. DISCUSSION: Evidence for a total left knee revision type procedure. Subtle lucency surrounding the femoral prosthetic which may indicate a component of loosening. No evidence for fracture. Degenerative change of the residual components of the knee. There is no evidence for soft tissue swelling. IMPRESSION: Degenerative and postoperative change. No acute bony abnormality. Probable loosening of the femoral prosthetic The above report was generated using voice recognition software. It may contain grammatical, syntax or spelling errors. Electronically signed by: Bean Morales M.D. 08/30/2016 11:17 AM Dictated Date/Time: 08/30/2016 11:15 AM
--- NOTE | 2016-08-30 11:20 | DIAGNOSTIC IMAGING REPORT ---
LEFT TIBIA/FIBULA 2 VIEWS ROUTINE CLINICAL HISTORY: eval for fx trauma COMPARISON: None. DISCUSSION: Total left knee prosthetic. No evidence for acute bony pathology. Cortical margins appear to be intact. There is no evidence for soft tissue swelling. IMPRESSION: No acute process.. Total left knee prosthetic. The above report was generated using voice recognition software. It may contain grammatical, syntax or spelling errors. Electronically signed by: Bean Morales M.D. 08/30/2016 11:18 AM Dictated Date/Time: 08/30/2016 11:18 AM
[2016-08-30 11:38] VITALS: BP 187/73; PULSE 57; O2SAT 99
--- NOTE | 2016-08-30 15:49 | EMERGENCY ROOM VISIT NOTE ---
History Report prepared by Jose: Will De Los Santos Under the Supervision of: Dr. Chandrakant Coulter M.D. First contact with patient: 10:04 Chief Complaint: KNEEPAIN Stated Complaint: LEFT KNEE PAIN History of Present Illness The patient is an 85 year old female who presents to the Emergency Room with complaints of persistent left knee pain that began yesterday. The patient states that she tripped over the wheel of her walker and fell onto her left knee yesterday. She states that her pain has been persistent since the fall. The patient denies any other injury due to the fall and denies hitting her head. She states that she has been feeling okay otherwise. The patient states that she cannot put any weight on her left knee without pain. She reports a surgical history of a left knee replacement. The patient denies any fever, vomiting, or abdominal pain. The patient's son notes that the patient has been complaining of increased pain in her left knee over the past year. Source of History: patient, family (son) Onset: yesterday Position: knee (left) Timing: other (persistent) Associated Symptoms: No fevers, No vomiting, No abdominal pain Note: Associated Symptoms: difficulty ambulating due to pain Review of Systems See HPI for pertinent positives & negatives. A total of 6 systems reviewed and were otherwise negative. 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 (3) S/p ORIF right acromion (4) S/P tonsillectomy Family History No pertinent family history Social History Smoking Status: Never Smoker Alcohol Use: none Drug Use: none Housing Status: assisted living Occupation Status: unemployed Current/Historical Medications Scheduled Acetaminophen (Tylenol Arthritis Ext Rel), 650 MG PO TID B-Complex Vitamins (Vitamin B Complex), 1 TAB PO QAM Calcium Carbonate (Calcium), 600 MG PO QAM Carbidopa/Levodopa (Sinemet 25MG/100MG), 2 TAB PO TID Docusate Sodium (Colace), 1 CAP PO BID Escitalopram (Lexapro), 10 MG PO QAM Menthol (Topical Analgesic) (Icy Hot Patch), 1 PATCH TOP QAM Metoprolol Succ (Toprol Xl) (Toprol-Xl), 25 MG PO QAM Pantoprazole (Protonix), 40 MG PO QAM Thiamine Hcl (Vitamin B-1), 100 MG PO DAILY Scheduled PRN Naproxen (Aleve), 220 MG PO Q12 PRN for Pain Allergies Coded Allergies: Tramadol (Unverified Allergy, Intermediate, "GOES CRAZY", 08/30/16) CI Pigment Blue 63 (Unverified Allergy, Unknown, ? reaction- obtained from neuro note , 08/30/16) Duloxetine (Unverified Allergy, Unknown, ? reaction- obtained from neuro note , 08/30/16) Milnacipran (Unverified Allergy, Unknown, ? reaction- obtained from neuro note , 08/30/16) Physical Exam Vital Signs Date Time Temp Pulse Resp B/P (MAP) Pulse Ox O2 Delivery O2 Flow Rate FiO2 08/30/16 11:38 57 18 187/73 99 Room Air 08/30/16 09:57 36.4 64 18 144/63 96 Room Air Physical Exam Constitutional: Vital signs reviewed. Respiratory: Clear to auscultation bilaterally. Breath sounds are equal bilaterally. Cardiovascular: Regular rate and rhythm. No rubs or gallops. Musculoskeletal: Diffuse anterior tenderness to the left knee, no deformity or joint laxity of the left knee. No peripheral edema. Integumentary: No cyanosis. Neurological: The patient is awake and alert. No focal deficits. Psychiatric: Normal affect. Medical Decision & Procedures ER Provider Diagnostic Interpretation: X-ray results as stated below per interpretation by me and the radiologist: LEFT TIBIA/FIBULA 2 VIEWS ROUTINE CLINICAL HISTORY: eval for fx trauma COMPARISON: None. DISCUSSION: Total left knee prosthetic. No evidence for acute bony pathology. Cortical margins appear to be intact. There is no evidence for soft tissue swelling. IMPRESSION: No acute process.. Total left knee prosthetic. The above report was generated using voice recognition software. It may contain grammatical, syntax or spelling errors. Electronically signed by: Bean Morales M.D. 08/30/2016 11:18 AM Dictated Date/Time: 08/30/2016 11:18 AM LEFT KNEE 3 VIEWS CLINICAL HISTORY: eval for fx with sunrise view trauma COMPARISON: None. DISCUSSION: Evidence for a total left knee revision type procedure. Subtle lucency surrounding the femoral prosthetic which may indicate a component of loosening. No evidence for fracture. Degenerative change of the residual components of the knee. There is no evidence for soft tissue swelling. IMPRESSION: Degenerative and postoperative change. No acute bony abnormality. Probable loosening of the femoral prosthetic The above report was generated using voice recognition software. It may contain grammatical, syntax or spelling errors. Electronically signed by: Bean Morales M.D. 08/30/2016 11:17 AM Dictated Date/Time: 08/30/2016 11:15 AM ED Course 1006: The patient was evaluated in room A9B. A complete history and physical exam was performed. 1128: I reevaluated the patient and she is resting. I discussed the x-ray findings with her. Orthopedics will be consulted. 1130: I discussed the patients case with Dr. Schmitt, Orthopedics. He is going to look at the x-rays and call back. 1138: I discussed the patients case with Dr. Schmitt, Orthopedics. He states that he compared x-rays done from June in the office and states that they look the same. He recommends a knee immobilizer and follow-up in the office. 1148: I reevaluated the patient and she is resting comfortably. I discussed the exam findings with her and I discussed the treatment plan. She verbalized complete understanding and agreement. She is ready to go home. Medical Decision This is an 85-year-old female who presents with left knee pain after fall. Differential diagnosis includes fracture, contusion, hardware displacement, effusion. I did perform a limited focused review of portions of the patient's old chart on the electronic medical record. The patient has had no recent pertinent visits to this hospital. Blood Pressure Screening: Patient was found to have an elevated blood pressure and was referred to their primary doctor for recheck and further treatment. Medication Reconciliation: I attest that I have personally reviewed the patient' s current medication list. I did evaluate the patient as noted above. I did order and personally review the patient's knee x-rays as described above. The patient has evidence of possible loosening of the femoral hardware due to a visible lucency. I did discuss the case with the orthopedic physician ed special education teacher. He looked at the x-ray and compared to one done in the office and felt that there was no difference in the x-rays. He recommended discharging the patient with a knee immobilizer and following up in the office. I did discuss the results and the plan with the patient. She was placed in a knee immobilizer. She verbalized agreement and understanding of the plan. She will follow up with her orthopedic physician in the office. Consults Time Called: 1127 Consulting Physician: Dr. Tinoco, Orthopedics Returned Call: 1130 I discussed the patients case with Dr. Schmitt, Orthopedics. He is going to look at the x-rays and call back. Impression Primary Impression: Left knee injury Additional Impression: Fall Scribe Attestation The scribe's documentation has been prepared under my direct and personally reviewed by me in its entirety. I confirm that the note above accurately reflects all work, treatment, procedures, and medical decision making performed by me. Departure Information Dispostion Home / Self-Care Referrals [facility] (PCP) Forms HOME CARE DOCUMENTATION FORM, IMPORTANT VISIT INFORMATION Patient Instructions My [facility] Additional Instructions You have been examined and treated today on an emergency basis only. This is not a substitute for, or an effort to provide, complete comprehensive medical care. It is impossible to recognize and treat all injuries or illnesses in a single emergency department visit. It is therefore important that you follow up closely with Dr. Fabian. Call as soon as possible for an appointment. Return for worsening symptoms or if you develop fever, chest pain, shortness of breath or any other concerning symptoms. Problem Qualifiers Primary Impression: Left knee injury Encounter type: initial encounter Qualified Codes: S89.92XA - Unspecified injury of left lower leg, initial encounter Additional Impression: Fall Encounter type: initial encounter Qualified Codes: W19.XXXA - Unspecified fall, initial encounter
== END 2016-08-30 12:05 | disposition home or self-care (01) ==
LOC: C.EDB 09:52 → C.EDA 12:05
DX: S89.92XA Unspecified injury of left lower leg, initial encounter (principal); W01.198A Fall on same level from slipping, tripping and stumbling with subsequent striking against other object, initial encounter; I10 Essential (primary) hypertension; M17.11 Unilateral primary osteoarthritis, right knee; F32.9 Major depressive disorder, single episode, unspecified; Z96.652 Presence of left artificial knee joint; Z90.89 Acquired absence of other organs; Z98.890 Other specified postprocedural states; Z79.899 Other long term (current) drug therapy

== ENCOUNTER 2016-09-01 11:48 | Inpatient (IN) | payer OTHER, BC ==
[~2016-09-01] VITALS: Ht 157.5 cm; Wt 49.3 kg
[2016-09-01] MEDS: LAVAGE SOLUTION 4000ML PO SCH ×4 (01:40→09:00)
[~2016-09-01 11:48] MED LIST changes: +CALC-393 PO; -CALCTAB5 PO; -POLY335019 PO; -POTA20TA16 PO; -SIMV40TA2 PO
[2016-09-01] MEDS ORDERED: CHOL1000 PO (12:45)
--- NOTE | 2016-09-01 12:57 | DIAGNOSTIC IMAGING REPORT ---
CHEST ONE VIEW PORTABLE CLINICAL HISTORY: CHEST PAIN dyspnea COMPARISON STUDY: 07/02/2015 FINDINGS: Mild stable cardia megaly. Lungs are clear. Diaphragms are smooth. Postoperative changes to the right shoulder and right clavicle are again noted. IMPRESSION: Chronic change. No acute process. The above report was generated using voice recognition software. It may contain grammatical, syntax or spelling errors. Electronically signed by: Bean Morales M.D. 09/01/2016 12:56 PM Dictated Date/Time: 09/01/2016 12:55 PM
[2016-09-01 13:00] LABS: BASO % 0.2 %; BASO ABS # 0.01 K/uL (0-0.2); COMPLETE YES; EOS % 0.8 %; HEMATOCRIT 30.2 % (37-47); IG% 0.6 %; LYMPH ABS # 0.68 K/uL (1.2-3.4); MEAN CELL VOLUME 93.2 fL (80-100); MEAN CORPUSCULAR HEMOGLOBIN 31.5 pg (25-34); MEAN CORPUSCULAR HGB CONC 33.8 g/dl (32-36); MEAN PLATELET VOLUME 9.3 fL (7.4-10.4); MONO % 8.4 %; PLATELET COUNT 177 K/uL (130-400); RED BLOOD COUNT 3.24 M/uL (4.2-5.4); WHITE BLOOD COUNT 5.24 K/uL (4.8-10.8)
[2016-09-01 13:08] LABS: PARTIAL THROMBOPLASTIN RATIO 0.9; PROTHROMBIN TIME (PATIENT) 10.7 SECONDS (9.0-12.0)
[2016-09-01 13:11] LABS: POINT OF CARE PRO-BNP 472 pg/ml (0-1800); POINT OF CARE TROPONIN I < 0.030 ng/ml (0-0.045)
[2016-09-01 13:21] LABS: BUN/CREATININE RATIO 31.2 (10-20); CALCIUM 8.7 mg/dl (8.5-10.1); CREATININE 0.86 mg/dl (0.60-1.20); POTASSIUM 4.1 mmol/L (3.5-5.1)
[2016-09-01 13:31] LABS: CKMB/CK RATIO 2.6 (0-3.0); THYROID STIMULATING HORMONE 0.87 uIu/ml (0.300-4.500)
[2016-09-01] MEDS ORDERED: OPTIRAY 320 IV PRN (14:00)
--- NOTE | 2016-09-01 14:33 | DIAGNOSTIC IMAGING REPORT ---
HEAD WITHOUT CONTRAST (CT) CLINICAL HISTORY: 85 years-old Female presenting with dizziness, fall. TECHNIQUE: Multidetector CT imaging of the head was performed without the use of intravenous contrast. COMPARISON: None. CT DOSE: 1380.10 mGycm FINDINGS: Ventricles and sulci normal in size without evidence of hydrocephalus. Subtle periventricular white matter hypoattenuation, nonspecific but likely chronic small vessel ischemic change. Hypoattenuation noted in the centrum semiovale of the right frontoparietal region near the vertex also likely due to small vessel ischemic change. No mass effect or midline shift. No hemorrhage or acute territorial infarct. No extra-axial fluid collection. Paranasal sinuses and mastoid air cells clear. Calvarium intact. IMPRESSION: No acute intracranial pathology. Electronically signed by: Levi Holloway M.D. 09/01/2016 2:32 PM Dictated Date/Time: 09/01/2016 2:29 PM
--- NOTE | 2016-09-01 14:35 | DIAGNOSTIC IMAGING REPORT ---
(CHEST FOR PE) ANGIO WITH CT DOSE: 335.23 mGycm HISTORY: Chest pain dyspnea TECHNIQUE: Multiaxial CT images of the chest were performed following the intravenous administration of contrast to evaluate the pulmonary arteries. Maximal intensity projection images were also obtained. COMPARISON STUDY: None. FINDINGS: There is a normal caliber thoracic aorta with no evidence for dissection. There is no evidence for pulmonary embolus. No pleural effusions. No pneumothorax. The liver and spleen are unremarkable. No mediastinal or hilar lymphadenopathy. The central airways are patent. The lungs are clear. IMPRESSION: No evidence for pulmonary embolus. The lungs are clear. The above report was generated using voice recognition software. It may contain grammatical, syntax or spelling errors. Electronically signed by: Bean Morales M.D. 09/01/2016 2:34 PM Dictated Date/Time: 09/01/2016 2:30 PM
[2016-09-01] MEDS ORDERED: SODIUM CHLORIDE 0.9% 1000ML 250 ML IV STA (14:47)
[2016-09-01] MEDS ORDERED: SODIUM CHLORIDE 0.9% 1000ML 1,000 ML IV STA (14:47)
--- NOTE | 2016-09-01 15:16 | EMERGENCY ROOM VISIT NOTE ---
History Report prepared by Jose: Brandt Pugh Under the Supervision of: Dr. Rigo Rowe M.D. First contact with patient: 12:14 Chief Complaint: SHORTNESS OF BREATH Stated Complaint: SOB / [facility] Nursing Triage Summary: Patient arrives via BLS from the [facility] with complaints of SOB and neck pain that started around 1030 this morning. Patient also complaining of mild left knee pain, she has prothesis in left knee but hasn't been able to see orthopedics. Patient also reported seeing bright red blood in her stool a few days ago. History of Present Illness The patient is a 85 year old female who presents to the Emergency Room by EMS with complaints of intermittent episodes of shortness of breath beginning a few weeks ago. She is a resident at the [facility]. She states that she had an hour long episode of shortness of breath this morning. The patient notes that she saw some bright red blood in her stool a few days ago. She states that she has been having about 1 bowel movement a day. She states that she noticed a very small amount of blood in her stool today. The patient denies any chest pain , cough, sore throat or fevers. She is not on any blood thinners. She notes that she fell yesterday and landed on her tailbone. She states that she lost her balance, and does not believe she had a syncopal event. The patient notes that she has felt a little stressed lately, but is not sure why. Source of History: patient, transfer records Onset: a few weeks ago Symptom Intensity: 1 hour long episode today Quality: other (shortness of breath) Timing: intermittent Associated Symptoms: + hematochezia (a few days ago), No fevers, No sorethroat, No cough, No chest pain Review of Systems See HPI for pertinent positives & negatives. A total of 10 systems reviewed and were otherwise negative. 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 Surgical Problems: (1) History of arthroscopy of right shoulder (2) History of total left knee replacement (3) S/p ORIF right acromion (4) S/P tonsillectomy (5) Status post right knee replacement Old medical records were reviewed. Nurse's notes were reviewed and I agree with. Family History No pertinent family history Social History Smoking Status: Never Smoker Alcohol Use: none Drug Use: none Housing Status: assisted living Occupation Status: unemployed Current/Historical Medications Scheduled Acetaminophen (Tylenol Arthritis Ext Rel), 650 MG PO TID B-Complex Vitamins (Vitamin B Complex), 1 TAB PO QAM Calcium Carbonate (Calcium), 600 MG PO QAM Carbidopa/Levodopa (Sinemet 25MG/100MG), 2 TAB PO TID Cholecalciferol (Vitamin D3), 1,000 INTER.UNIT PO DAILY Docusate Sodium (Colace), 1 CAP PO BID Escitalopram (Lexapro), 20 MG PO QAM Metoprolol Succ (Toprol Xl) (Toprol-Xl), 25 MG PO QAM Pantoprazole (Protonix), 40 MG PO QAM Thiamine Hcl (Vitamin B-1), 100 MG PO DAILY Scheduled PRN Naproxen (Aleve), 220 MG PO Q12 PRN for Pain Allergies Coded Allergies: Tramadol (Unverified Allergy, Intermediate, "GOES CRAZY", 09/01/16) CI Pigment Blue 63 (Unverified Allergy, Unknown, ? reaction- obtained from neuro note , 09/01/16) Duloxetine (Unverified Allergy, Unknown, ? reaction- obtained from neuro note , 09/01/16) Milnacipran (Unverified Allergy, Unknown, ? reaction- obtained from neuro note , 09/01/16) Physical Exam Vital Signs Date Time Temp Pulse Resp B/P (MAP) Pulse Ox O2 Delivery O2 Flow Rate FiO2 09/01/16 15:45 94 Room Air 09/01/16 14:34 81 18 213/81 94 Room Air 09/01/16 13:28 60 22 173/64 97 Room Air 09/01/16 12:10 63 09/01/16 11:52 36.9 65 24 177/75 98 Room Air 09/01/16 11:52 98 Room Air 09/01/16 11:52 98 Room Air Physical Exam General: Non ill appearing older female in no acute distress HEENT: Normal cephalic atraumatic. Pupils are equal round and reactive to light. Extraocular movements are intact. Oropharynx is pink with moist mucous membranes. No swelling of the mouth lips or tongue. Neck: Supple with a midline trachea. No meningeal signs or stiffness, no JVD or bruits. No Stridor. Chest: Clear to auscultation bilaterally. No wheezes or rhonchi. No increased work of breathing. Heart: regular rate and rhythm. Abdomen: Soft nontender, nondistended without rebound guarding or rigidity. Recta (performed in the presence of a female nurse supervisor inspection and testing )l: Maroon stool, guaiac positive. Extremities: No cyanosis clubbing or edema. No calf tenderness or assymetry Spine/Back. Non tender to palpation. No CVA tenderness Skin: Good turgor without rashes. Neurologic exam: Cranial nerves two through 12 are intact. Motor and sensation are intact and symmetrical throughout. Medical Decision & Procedures ER Provider Diagnostic Interpretation: Radiology results as stated below per my review and radiologist interpretation: CHEST ONE VIEW PORTABLE FINDINGS: Mild stable cardia megaly. Lungs are clear. Diaphragms are smooth. Postoperative changes to the right shoulder and right clavicle are again noted. IMPRESSION: Chronic change. No acute process. The above report was generated using voice recognition software. It may contain grammatical, syntax or spelling errors. Electronically signed by: Bean Morales M.D. HEAD WITHOUT CONTRAST (CT) FINDINGS: Ventricles and sulci normal in size without evidence of hydrocephalus. Subtle periventricular white matter hypoattenuation, nonspecific but likely chronic small vessel ischemic change. Hypoattenuation noted in the centrum semiovale of the right frontoparietal region near the vertex also likely due to small vessel ischemic change. No mass effect or midline shift. No hemorrhage or acute territorial infarct. No extra-axial fluid collection. Paranasal sinuses and mastoid air cells clear. Calvarium intact. IMPRESSION: No acute intracranial pathology. Electronically signed by: Levi Holloway M.D. (CHEST FOR PE) ANGIO WITH FINDINGS: There is a normal caliber thoracic aorta with no evidence for dissection. There is no evidence for pulmonary embolus. No pleural effusions. No pneumothorax. The liver and spleen are unremarkable. No mediastinal or hilar lymphadenopathy. The central airways are patent. The lungs are clear. IMPRESSION: No evidence for pulmonary embolus. The lungs are clear. The above report was generated using voice recognition software. It may contain grammatical, syntax or spelling errors. Electronically signed by: Bean Morales M.D. Laboratory Results Test 09/01/16 12:44 09/01/16 12:48 Prothrombin Time 10.7 SECONDS (9.0-12.0) Prothromb Time International Ratio 1.0 (0.9-1.1) Activated Partial Thromboplast Time 24.6 SECONDS (21.0-31.0) Partial Thromboplastin Ratio 0.9 Total Bilirubin 0.5 mg/dl (0.2-1) Direct Bilirubin 0.2 mg/dl (0-0.2) Aspartate Amino Transf (AST/SGOT) 18 U/L (15-37) Alanine Aminotransferase (ALT/SGPT) 7 U/L (12-78) Alkaline Phosphatase 84 U/L (45-117) Total Creatine Kinase 69 U/L (26-192) Creatine Kinase MB 1.8 ng/ml (0.5-3.6) Creatine Kinase MB Ratio 2.6 (0-3.0) Total Protein 5.8 gm/dl (6.4-8.2) Albumin 3.4 gm/dl (3.4-5.0) Lipase 242 U/L (73-393) Thyroid Stimulating Hormone (TSH) 0.870 uIu/ml (0.300-4.500) Bedside D-Dimer > 450 ng/mlFEU (0-450) Bedside Troponin I < 0.030 ng/ml (0-0.045) YQ-Ild-L-Type Natriuretic Peptide 472 pg/ml (0-1800) Laboratory studies as stated above per my review. Medications Administered Medications (Trade) Dose Ordered Sig/Genet Route Start Time Stop Time Status Last Admin Dose Admin Sodium Chloride 250 ml @ 999 mls/hr Q16M STAT IV 09/01/16 14:47 09/01/16 15:02 DC 09/01/16 14:54 999 MLS/HR Sodium Chloride 1,000 ml @ 100 mls/hr Q10H STAT IV 09/01/16 14:47 09/01/16 16:43 DC 09/01/16 14:54 100 MLS/HR Acetaminophen (Tylenol Tab) 650 mg Q4H PRN PO 09/01/16 15:45 10/01/16 15:44 09/02/16 09:01 650 MG Ondansetron HCl (Zofran Inj) 4 mg Q6H PRN IV 09/01/16 15:45 10/01/16 15:44 09/02/16 09:21 4 MG ECG Indication: SOB/dyspnea Rate (beats per minute): 66 Rhythm: normal sinus Findings: no acute ischemic change, no ectopy Comparison ECG Date: Mar 15, 2016 Change: no significant change ED Course 1215: Past medical records reviewed. The patient was evaluated in room A10, and a complete history and physical examination were performed. 1340: I reassessed the patient. She is resting comfortably. We discussed the prospect of ordering a CT and she verbalized agreement. 1442: I conducted a rectal exam in the presence of a female nurse supervisor inspection and testing. See the physical exam for findings. 1447: Ordered Sodium Chloride 1000 ml @ 100 mls/hr IV, Sodium Chloride 250 ml @ 999 mls/hr IV. 1458: Upon reevaluation, the patient is resting comfortably. I discussed the results and treatment plan with the patient. She verbalized agreement of the treatment plan. The patient will be evaluated for further management. Medical Decision Differentials include, but are not limited to; CHF, COPD, acute coronary syndrome, arrhythmia, anxiety and electrolyte or metabolic abnormality. Blood pressure Screening: Patient was found to have an elevated blood pressure and was referred to their primary doctor for recheck and further treatment. Medication Reconciliation: I attest that I have personally reviewed the patient' s current medication list. This patient comes in as described above. She was placed in room A 10. She presents complaining of episode where she felt short of breath up into her neck. No chest pain. It was somewhat pleuritic. She also has had some blood in her stool. She does not feel lightheaded or dizzy. She has stable vital signs and looks well. She seems mildly anxious at times however. IV access established and she was gently hydrated. Multiple blood testing was obtained as well as EKG and imaging. I also got a CAT scan of her head as she says she' s felt dizzy lately and it was unremarkable. I did a chest CT as her d-dimer was mildly elevated and there is no evidence of PE or other pathology. EKG does not suggest acute coronary syndrome or arrhythmia. Cardiac biomarkers are not elevated. She was found to be anemic in the 10 range and this is slightly lower than her previous where she was 11 or 12. I also did a rectal exam and she has maroon stool that was guaiac positive. In light of this, I do think she needs to be admitted for further treatment and workup of her lower GI bleed. I have consulted the [facility] physician group and she was seen in the ER. Consults Time Called: 1961 Consulting Physician: Dr. Hanna -SANDRA Returned Call: [phone] Discussed the patient's case. The patient will be evaluated for further management. Impression Primary Impression: GI bleed Additional Impression: SOB (shortness of breath) Scribe Attestation The scribe's documentation has been prepared under my direction and personally reviewed by me in its entirety. I confirm that the note above accurately reflects all work, treatment, procedures, and medical decision making performed by me. Departure Information Dispostion Being Evaluated By Hospitalist Referrals [facility] (PCP) Patient Instructions My [facility] Health Problem Qualifiers
[2016-09-01 15:45] VITALS: O2SAT 94; Ht 157.5 cm; Wt 49.3 kg
[2016-09-01] MEDS ORDERED: ONDANSETRON INJ 2 MG/ML 2 ML VIAL IV PRN (15:45)
[2016-09-01] MEDS ORDERED: HydrALAZINE HCL 20 MG/ML VIAL IV. STA (16:28)
--- NOTE | 2016-09-01 16:40 | History and Physical ---
History & Physical Date & Time of Service: Sep 01, 2016 at 16:08 Chief Complaint: Sob / [facility] Primary Care Physician: Bhaskar Tovar History of Present Illness Source: patient, family This is a 85 yo F with PMHx of Parkinson's disease, HTN, HLD, depression, osteoarthritis, Vit D deficiency, Vit B deficiency, low back pain, gait disturbance, peripheral neuropathy, and bilateral TKAs, R hip replacement and R shoulder replacement who presents with maroon colored stools x 3 days which were heme positive, along with shortness of breath. The patient is present here with her son, Randal, who supports medical history she is a fair historian.The patient was seen this morning by nursing staff for PT, as she lives in the independent side of the [facility], and when they were there the patient told them about her dark colored stools. She denies any bright red blood per rectum. She does not take any blood thinners or aspirin. The patient 's last time being seen by GI was over 10 years ago, she cannot remember the results of her most recent colonoscopy. Of note, the patient was seen in the ER this past Wednesday after a fall, which they believed was due to walking issues secondary to her right knee which needs revision. She then again fell on Wednesday morning onto her buttocks. During both of these occasions she was using walker. She denies any lightheadedness or dizziness prior to fall, or loss of consciousness, or any trauma sustained to the head. She notes that her shortness of breath has been progressive and coming on for several months. Here in the ED hemoglobin was found to be 10.2, which is dropped 2 g in the past 1 month. Chest x-ray was completed and is negative for acute findings. CT of the head was completed due to her recent falls which is also negative for acute intracranial pathology. CT PE was also completed to assess dyspnea and it was found to be negative for pulmonary embolus. EKG was reviewed and found to be in NSR without any acute ST wave inversions or signs of ischemic changes. Past Medical/Surgical History Medical Problems: (1) Depression Status: Chronic (2) Dyslipidemia Status: Chronic (3) Hypertension Status: Chronic (4) Osteoarthritis Status: Chronic (5) Parkinson's disease (6) Anxiety Surgical Problems: (1) History of arthroscopy of right shoulder Status: Chronic (2) History of total left knee replacement Permanent Comment: and subsequent revision Status: Chronic (3) S/p ORIF right acromion Status: Chronic (4) S/P tonsillectomy Status: Chronic (5) History of Left knee replacement Family History No pertinent family history Social History Smoking Status: Never Smoker Alcohol Use: none Drug Use: none Housing status: intermediate Occupational Status: unemployed Immunizations History of Influenza Vaccine: Yes History of Tetanus Vaccine?: Yes History of Pneumococcal: Yes History of Hepatitis B Vaccine: No Allergies Coded Allergies: Tramadol (Unverified Allergy, Intermediate, "GOES CRAZY", 09/01/16) CI Pigment Blue 63 (Unverified Allergy, Unknown, ? reaction- obtained from neuro note , 09/01/16) Duloxetine (Unverified Allergy, Unknown, ? reaction- obtained from neuro note , 09/01/16) Milnacipran (Unverified Allergy, Unknown, ? reaction- obtained from neuro note , 09/01/16) Home Medications Scheduled Acetaminophen (Tylenol Arthritis Ext Rel), 650 MG PO TID B-Complex Vitamins (Vitamin B Complex), 1 TAB PO QAM Calcium Carbonate (Calcium), 600 MG PO QAM Carbidopa/Levodopa (Sinemet 25MG/100MG), 2 TAB PO TID Cholecalciferol (Vitamin D3), 1,000 INTER.UNIT PO DAILY Docusate Sodium (Colace), 1 CAP PO BID Escitalopram (Lexapro), 20 MG PO QAM Metoprolol Succ (Toprol Xl) (Toprol-Xl), 25 MG PO QAM Pantoprazole (Protonix), 40 MG PO QAM Thiamine Hcl (Vitamin B-1), 100 MG PO DAILY Scheduled PRN Naproxen (Aleve), 220 MG PO Q12 PRN for Pain Review of Systems Constitutional: No fever, sweats or chills Eyes: No diplopia, no worsening or blurred vision ENT: normal hearing, no trouble swallowing Respiratory: + Progressive shortness of breath over the past several months with exertion. No cough, sputum, dyspnea at rest. Cardiovascular: No chest pain, tightness or palpitations Abdomen: + dark maroon colored stools x 3 days. No pain, nausea, vomiting, diarrhea or constipation Musculoskeletal: + multiple replaced joints as per HPI. No joint pain, calf pain , swelling Neurologic: No weakness, numbness/tingling, or balance problems Psychiatric: No anxiety or depression Skin: No rash or itch Physical Exam Vital Signs Date Time Temp Pulse Resp B/P (MAP) Pulse Ox O2 Delivery O2 Flow Rate FiO2 09/01/16 16:03 73 09/01/16 14:34 81 18 213/81 94 Room Air 09/01/16 13:28 60 22 173/64 97 Room Air 09/01/16 12:10 63 09/01/16 11:52 36.9 65 24 177/75 98 Room Air 09/01/16 11:52 98 Room Air 09/01/16 11:52 98 Room Air General: awake, alert, no apparent distress, +appears slightly anxious, thin Head: Normocephalic, atraumatic ENT: PERRL, EOMI, no pharyngeal exudate, mucous membranes moist Chest: Clear to auscultation, on room air, no adventitious breath sounds Cardiac: Regular rate and rhythm, + systolic ejection murmur Grade III/, no JVD, normal peripheral pulses, good capillary refill Abdominal: NABS x 4 quadrants, soft, nontender to palpation, no rebound, guarding or tenderness Extremities: Normal inspection, no peripheral edema or erythema, calfs nontender to palpation Psych: Normal mood and affect Neuro: AAO x 3, speech is clear, no peripheral sensory deficits Diagnostics Laboratory Results Results Past 24 Hours Test 09/01/16 12:44 09/01/16 12:48 Range/Units White Blood Count 5.24 4.8-10.8 K/uL Red Blood Count 3.24 4.2-5.4 M/uL Hemoglobin 10.2 12.0-16.0 g/dL Hematocrit 30.2 37-47 % Mean Corpuscular Volume 93.2 80-100 fL Mean Corpuscular Hemoglobin 31.5 25-34 pg Mean Corpuscular Hemoglobin Concent 33.8 32-36 g/dl Platelet Count 177 130-400 K/uL Mean Platelet Volume 9.3 7.4-10.4 fL Neutrophils (%) (Auto) 77.0 % Lymphocytes (%) (Auto) 13.0 % Monocytes (%) (Auto) 8.4 % Eosinophils (%) (Auto) 0.8 % Basophils (%) (Auto) 0.2 % Neutrophils # (Auto) 4.04 1.4-6.5 K/uL Lymphocytes # (Auto) 0.68 1.2-3.4 K/uL Monocytes # (Auto) 0.44 0.11-0.59 K/uL Eosinophils # (Auto) 0.04 0-0.5 K/uL Basophils # (Auto) 0.01 0-0.2 K/uL RDW Standard Deviation 44.4 36.4-46.3 fL RDW Coefficient of Variation 13.0 11.5-14.5 % Immature Granulocyte % (Auto) 0.6 % Immature Granulocyte # (Auto) 0.03 0.00-0.02 K/uL Prothrombin Time 10.7 9.0-12.0 SECONDS Prothromb Time International Ratio 1.0 0.9-1.1 Activated Partial Thromboplast Time 24.6 21.0-31.0 SECONDS Partial Thromboplastin Ratio 0.9 Sodium Level 142 136-145 mmol/L Potassium Level 4.1 3.5-5.1 mmol/L Chloride Level 108 98-107 mmol/L Carbon Dioxide Level 31 21-32 mmol/L Anion Gap 3.0 3-11 mmol/L Blood Urea Nitrogen 27 7-18 mg/dl Creatinine 0.86 0.60-1.20 mg/dl Est Creatinine Clear Calc Drug Dose 37.8 ml/min Estimated GFR () 71.4 Estimated GFR (Non- 61.6 BUN/Creatinine Ratio 31.2 10-20 Random Glucose 99 70-99 mg/dl Calcium Level 8.7 8.5-10.1 mg/dl Total Bilirubin 0.5 0.2-1 mg/dl Direct Bilirubin 0.2 0-0.2 mg/dl Aspartate Amino Transf (AST/SGOT) 18 15-37 U/L Alanine Aminotransferase (ALT/SGPT) 7 12-78 U/L Alkaline Phosphatase 84 45-117 U/L Total Creatine Kinase 69 26-192 U/L Creatine Kinase MB 1.8 0.5-3.6 ng/ml Creatine Kinase MB Ratio 2.6 0-3.0 Total Protein 5.8 6.4-8.2 gm/dl Albumin 3.4 3.4-5.0 gm/dl Lipase 242 73-393 U/L Thyroid Stimulating Hormone (TSH) 0.870 0.300-4.500 uIu/ml Bedside D-Dimer > 450 0-450 ng/mlFEU Bedside Troponin I < 0.030 0-0.045 ng/ml [id number] Natriuretic Peptide 472 0-1800 pg/ml Diagnostic Radiology CHEST ONE VIEW PORTABLE CLINICAL HISTORY: CHEST PAIN dyspnea COMPARISON STUDY: 07/02/2015 FINDINGS: Mild stable cardia megaly. Lungs are clear. Diaphragms are smooth. Postoperative changes to the right shoulder and right clavicle are again noted. IMPRESSION: Chronic change. No acute process. The above report was generated using voice recognition software. It may contain grammatical, syntax or spelling errors. Electronically signed by: Bean Morales M.D. 09/01/2016 12:56 PM Dictated Date/Time: 09/01/2016 12:55 PM The status of this report is Signed. [~ rep ct add3]] HEAD WITHOUT CONTRAST (CT) CLINICAL HISTORY: 85 years-old Female presenting with dizziness, fall. TECHNIQUE: Multidetector CT imaging of the head was performed without the use of intravenous contrast. COMPARISON: None. CT DOSE: 1380.10 mGycm FINDINGS: Ventricles and sulci normal in size without evidence of hydrocephalus. Subtle periventricular white matter hypoattenuation, nonspecific but likely chronic small vessel ischemic change. Hypoattenuation noted in the centrum semiovale of the right frontoparietal region near the vertex also likely due to small vessel ischemic change. No mass effect or midline shift. No hemorrhage or acute territorial infarct. No extra-axial fluid collection. Paranasal sinuses and mastoid air cells clear. Calvarium intact. IMPRESSION: No acute intracranial pathology. Electronically signed by: Levi Holloway M.D. 09/01/2016 2:32 PM Dictated Date/Time: 09/01/2016 2:29 PM The status of this report is Signed. (CHEST FOR PE) ANGIO WITH CT DOSE: 335.23 mGycm HISTORY: Chest pain dyspnea TECHNIQUE: Multiaxial CT images of the chest were performed following the intravenous administration of contrast to evaluate the pulmonary arteries. Maximal intensity projection images were also obtained. COMPARISON STUDY: None. FINDINGS: There is a normal caliber thoracic aorta with no evidence for dissection. There is no evidence for pulmonary embolus. No pleural effusions. No pneumothorax. The liver and spleen are unremarkable. No mediastinal or hilar lymphadenopathy. The central airways are patent. The lungs are clear. IMPRESSION: No evidence for pulmonary embolus. The lungs are clear. The above report was generated using voice recognition software. It may contain grammatical, syntax or spelling errors. Electronically signed by: Bean Morales M.D. 09/01/2016 2:34 PM Dictated Date/Time: 09/01/2016 2:30 PM The status of this report is Signed. EKG Vent. rate 63 BPM WV interval 178 ms QRS duration 94 ms QT/QTc 420/429 ms P-R-T axes 40 38 58 Poor data quality, interpretation may be adversely affected Normal sinus rhythm Normal ECG When compared with ECG of 15-MAR-2016 13:53, No significant change was found Confirmed by SANTA READ ([id number]) on 09/01/2016 1:15:29 PM Impression Assessment and Plan This is a 85 yo F with PMHx of Parkinson's disease, HTN, HLD, depression, osteoarthritis, Vit D deficiency, Vit B deficiency, low back pain, gait disturbance, peripheral neuropathy, and bilateral TKAs, R hip replacement and R shoulder replacement who presents with maroon colored stools x 3 days which were heme positive, along with shortness of breath. Generalized weakness GI bleed - Admit to telemetry - Trend cardiac enzymes, first set was negative - EKG was reviewed and appears to be without any acute ischemia or ST wave inversions. - Consult GI- spoke with Dr. Brewer who plans to see the patient this evening, will allow her to eat dinner and plan for +/- EGD/colonoscopy tomorrow morning - NPO after midnight except meds - Will gently hydrate with maintenance fluids, NSS at 75 ml/hr 12 hours - Takes Protonix 40 mg every morning and outpatient, will increase to 40 BID for now - Type and screen - no blood consent obtained at this time Hx frequent falls - PT/OT evals - Pt from independent side at the [facility] Hypertension - BP moderately elevated in the 170/75 and peaked at 210s/80s, likely secondary to anxiety - Will order hydralazine 10 mg IV now, and continue this prn for SBP > 180 or DBP > 110 - Continue metoprolol succinate 25 mg QAM Shortness of breath - PT reports this has been worsening over the past few months - Chest x-ray reviewed and is negative for any acute findings - Does not require supplemental oxygen at baseline, currently O2 sats are 94% on room air Parkinson's disease - Continue Sinemet 25/100 mg - Follows with Dr. Zamarripa has an outpatient Hx of bilateral TKA, right shoulder replacement, right hip replacement - Most recently saw Dr. Fabian for right knee revision in 2014 - Shoulder replaced by Dr. Schmitt in 2016 Depression - Continue Lexapro 20 mg daily Chronic low back pain - She takes Tylenol as an outpatient, but avoid tramadol as this has caused severe confusion for the patient in previous trials. Vitamin D deficiency Vitamin B deficiency - Continue supplementation DVT ppx: teds, scds, no chemical anticoagulation in light of GI bleed CODE STATUS: DO NOT RESUSCITATE Disposition: [place] from the [place], PT/OT evals, GI eval, discharge likely within 1-2 days Level of Care Telemetry Advanced Directives Existing Advance Directive: Yes Existing Living Will: Yes Existing Power of Dispatcher Street Department: Yes Existing Health Care Proxy: Yes Resuscitation Status DO NOT RESUSCITATE VTE Prophylaxis VTE Risk Assessment Done? Y/N: Yes Risk Level: Low Given or contraindicated: T.E.D. Stockings, SCD's Reviewed: Pt Seen/Exam by Me History Physician Community Development Specialist Supervision Note: I interviewed and examined the patient. Discussed with KENIA Flynn and agree with findings and plan as documented in the note. Any exceptions or clarifications are listed here: Pt here with maroon colored stools x 3 days and a more chronic c/o SOB at rest and seems to be related to anxiety for several months. SHe was found to have a drop of about 2 grams in hgb over the last 2 months and had gross maroon stool on ALYSSIA by ED MD. No h/o abdominal pain at all. CTA chest neg for PE or other significant Pulm process. Pt did have SOB symptoms at rest during my interview and was admittedly very anxious and BP 213 systolic at that time. SHe states she has no BYRNE and can walk around frequently without any SOB. Discussed case with Dr. Brewer. Vitals reviewed, remains hypertensive but improved somewhat after hydralazine given Very anxious, thin RRR, +3/6 ANA LUISA heard best at [facility] CTAB no wcr Abd +BS soft NT ND, no HSM Ext no edema, 2+ DP pulses bilat Skin no rashes 85 yo female with acute blood loss anemia, GI bleeding, intermittent SOB and hypertensive urgency. -continue hydralazine prn high BP and consider adding labetalol prn -dc IVFs now for high BP -plan for EGD and colon tomorrow -trend H/H and transfuse if Hgb < 8 -check ECHO for loud murmur, suspect -consider PFTs as outpatient but SOB likely secondary to anxiety, could be related to Parkinson's -Urinary retention-of unknown cause but is receiving a lot of IVFs and has severe anxiety, could be very tight in urethral sphincter--> bladder scan qshift and straight cath as needed--> follow Ur cx but UA is a contaminated sample, blood probably from cath trauma, consider repeat UA Documented By: Lauren Hanna
[2016-09-01 16:46] VITALS: BP 212/122; PULSE 72; TEMP 36.4; O2SAT 98
[2016-09-01] MEDS ORDERED: SODIUM CHLORIDE 0.9% 1000ML 1,000 ML IV SCH (17:00)
[2016-09-01] MEDS: LORAZEPAM 0.5 MG TAB PO PRN (18:34)
[2016-09-01 19:01] LABS: URINE APPEARANCE CLEAR (CLEAR); URINE BILIRUBIN NEG (NEG); URINE COLOR YELLOW; URINE NITRITE NEG (NEG); URINE PH 7.5 (4.5-7.5); URINE SPECIFIC GRAVITY 1.024 (1.000-1.030); UROBILINOGEN NEG (NEG); ZZUR CULT IF INDIC CLEAN CATCH YES
[2016-09-01 19:06] LABS: MANUAL MICROSCOPIC REQUIRED? NO; REVIEW REQ? NO
[2016-09-01 19:16] VITALS: BP 187/65; PULSE 66; TEMP 36.8; O2SAT 99
[2016-09-01 20:11] LABS: HEMATOCRIT 33.3 % (37-47)
[2016-09-01] MEDS: CARBIDOPA/LEVODOPA 25/100MG TAB PO SCH (21:00)
--- NOTE | 2016-09-01 22:06 | Gastrointestinal Consultation ---
Gastrointestinal Consultation Date of Consultation: Sep 01, 2016 Reason for Consultation: maroon stool, GI bleeding, anemia; weight loss History of Present Illness Patient is a 85 year old female who presents to the emergency room with a history of maroon-colored painless stools of 3-4 days of duration. The patient does use Aleve for arthritis and joint aches but does not report nausea vomiting hematemesis or coffee ground emesis. The patient's last colonoscopy was performed in [facility] and was approximately 10 years ago or so. In addition to the description of maroon-colored stools, the patient has experienced a 20 pound weight loss since February of this year. Despite this the patient does not report anorexia abdominal pain with meals or food aversion. In the emergency room her hemoglobin was 10.2 which reflects an approximate 2 g drop over the past 1-2 months. Imaging studies were reviewed and there are no specific findings including the absence of a pulmonary embolus. The patient has no prior history of peptic ulcer disease or gastritis. The patient's past medical history is listed below and includes depression and dyslipidemia hypertension osteoarthritis, Parkinson's disease, right shoulder arthroscopic, total left knee replacement tonsillectomy and left knee replacement and repair by open reduction and internal fixation of the right acromion. The patient denies any specific family history related to colorectal cancer peptic ulcer disease or other gastrointestinal disorders. Socially the patient denies tobacco and only drinks an occasional glass of white wine. The patient lives at home with her son in the [facility] and is been for 8 years. She worked in [employer]. The patient has 2 children who are in good health overall. Allergies are listed above Home medications are listed below Review of systems is otherwise noncontributory based on 13 point exam except for mentioned above the patient denies odynophagia dysphagia dysuria hematuria or melena. Past Medical/Surgical History Medical Problems: (1) GI bleed Status: Acute (2) Right knee pain Status: Acute (3) SOB (shortness of breath) Status: Acute Past Medical History: See above Past Surgical History: See above Family History No pertinent family history See above Social History Smoking Status: Never Smoker Alcohol Use: none Drug Use: none Marital Status: Housing Status: lives with family, assisted living Occupation Status: unemployed, retired denies tobacco use, occasional white wine per pt. Lives with son. previously worked at [employer] Allergies Coded Allergies: Tramadol (Unverified Allergy, Intermediate, "GOES CRAZY", 09/01/16) CI Pigment Blue 63 (Unverified Allergy, Unknown, ? reaction- obtained from neuro note , 09/01/16) Duloxetine (Unverified Allergy, Unknown, ? reaction- obtained from neuro note , 09/01/16) Milnacipran (Unverified Allergy, Unknown, ? reaction- obtained from neuro note , 09/01/16) Current Medications Home Meds and Scripts Medications Dose Route/Sig Max Daily Dose Days Date Category Dose Instructions Vitamin D3 (Cholecalciferol) 1,000 Unit Tab 1,000 Inter.unit PO DAILY 90 09/01/16 Reported Calcium (Calcium Carbonate) 600 Mg Tab 600 Mg PO QAM 08/30/16 Reported Colace (Docusate Sodium) 100 Mg Cap 1 Cap PO BID 30 03/15/16 Reported Vitamin B-1 (Thiamine HCl) 100 Mg Tab 100 Mg PO DAILY 03/15/16 Reported Aleve (Naproxen) 220 Mg Tab 220 Mg PO Q12 PRN 02/21/16 Reported Sinemet 25MG/100MG (Carbidopa/Levodopa) Tab 2 Tab PO TID 02/21/16 Reported PT TAKES @ 0700,1200 & 1700 Vitamin B Complex (B-Complex Vitamins) 1 Tab Tab 1 Tab PO QAM 02/21/16 Reported Protonix (Pantoprazole Sodium) 40 Mg Tab 40 Mg PO QAM 02/21/16 Reported Tylenol Arthritis Ext Rel (Acetaminophen) 650 Mg Cplt 650 Mg PO TID 05/01/15 Reported Lexapro (Escitalopram Oxalate) 10 Mg Tab 20 Mg PO QAM 02/02/14 Reported Toprol-Xl (Metoprolol Succinate) 25 Mg Tabcr 25 Mg PO QAM 06/30/10 Reported Review of Systems Constitutional: + see HPI, + weight loss, No fever, No chills, No sweats Eyes: + see HPI ENT: + see HPI Respiratory: No cough, No sputum, No wheezing, No shortness of breath, No dyspnea on exertion Cardiac: No chest pain, No orthopnea, No claudication, No palpitations Abdomen: + GI bleeding, No pain, No nausea, No vomiting, No constipation, No dysphagia, No odynophagia, No acolic stools, No jaundice, No dark urine Musculoskeletal: + joint pain Female : No dysuria Neuro: No memory loss, No weakness Psych: No depression symptoms, No anxiety, No insomnia Heme: No clotting problems, No swollen lymph nodes, No night sweats Endo: No fatigue, No excessive thirst, No excessive urination Skin: No rash, No itch Physical Exam Date Time Temp Pulse Resp B/P (MAP) Pulse Ox O2 Delivery O2 Flow Rate FiO2 09/01/16 20:00 Room Air 09/01/16 19:16 36.8 66 18 187/65 (105) 99 Room Air 09/01/16 16:46 36.4 72 18 212/122 (152) 98 Room Air 09/01/16 16:30 70 18 206/77 94 Room Air 09/01/16 16:03 73 09/01/16 15:45 94 Room Air 09/01/16 14:34 81 18 213/81 94 Room Air 09/01/16 13:28 60 22 173/64 97 Room Air 09/01/16 12:10 63 09/01/16 11:52 36.9 65 24 177/75 98 Room Air 09/01/16 11:52 98 Room Air 09/01/16 11:52 98 Room Air General Appearance: WD/WN, no apparent distress Eyes: normal inspection ENT: hearing grossly normal, pharynx normal Neck: supple, no adenopathy, no carotid bruits Respiratory/Chest: chest non-tender, lungs clear, normal breath sounds, no respiratory distress Cardiovascular: regular rate, rhythm, + systolic murmur Abdomen: normal bowel sounds, non tender, soft, no organomegaly, no pulsatile mass Extremities: non-tender, normal inspection, no calf tenderness Neurologic/Psych: no motor/sensory deficits, alert, normal mood/affect, oriented x 3 Skin: normal color, no jaundice, no rash The patient is awake alert and oriented 3. The oral mucosa is moist, sclerae anicteric, conjunctiva moist. There is no evidence for cervical or supraclavicular adenopathy. I do not appreciate thyromegaly. The heart demonstrates a systolic ejection murmur throughout the precordium with lungs are clear to auscultation without rales, rhonchi, or wheezes. The abdomen is soft, nontender, nondistended with normal active bowel sounds. I do not appreciate abdominal bruits or masses. There is no evidence for ascites or shifting dullness. There is no organomegaly. There are no ventral wall hernias. Extremities show a tenderness in the left knee without significant erythema to the skin. There is trace edema bilaterally. A rectal exam is deferred at this time Neuro exam is nonfocal. Laboratory Results Results Past 24 Hours Test 09/01/16 12:44 09/01/16 12:48 09/01/16 18:15 09/01/16 19:51 Range/Units White Blood Count 5.24 4.8-10.8 K/uL Red Blood Count 3.24 4.2-5.4 M/uL Hemoglobin 10.2 11.0 12.0-16.0 g/dL Hematocrit 30.2 33.3 37-47 % Mean Corpuscular Volume 93.2 80-100 fL Mean Corpuscular Hemoglobin 31.5 25-34 pg Mean Corpuscular Hemoglobin Concent 33.8 32-36 g/dl Platelet Count 177 130-400 K/uL Mean Platelet Volume 9.3 7.4-10.4 fL Neutrophils (%) (Auto) 77.0 % Lymphocytes (%) (Auto) 13.0 % Monocytes (%) (Auto) 8.4 % Eosinophils (%) (Auto) 0.8 % Basophils (%) (Auto) 0.2 % Neutrophils # (Auto) 4.04 1.4-6.5 K/uL Lymphocytes # (Auto) 0.68 1.2-3.4 K/uL Monocytes # (Auto) 0.44 0.11-0.59 K/uL Eosinophils # (Auto) 0.04 0-0.5 K/uL Basophils # (Auto) 0.01 0-0.2 K/uL RDW Standard Deviation 44.4 36.4-46.3 fL RDW Coefficient of Variation 13.0 11.5-14.5 % Immature Granulocyte % (Auto) 0.6 % Immature Granulocyte # (Auto) 0.03 0.00-0.02 K/uL Prothrombin Time 10.7 9.0-12.0 SECONDS Prothromb Time International Ratio 1.0 0.9-1.1 Activated Partial Thromboplast Time 24.6 21.0-31.0 SECONDS Partial Thromboplastin Ratio 0.9 Sodium Level 142 136-145 mmol/L Potassium Level 4.1 3.5-5.1 mmol/L Chloride Level 108 98-107 mmol/L Carbon Dioxide Level 31 21-32 mmol/L Anion Gap 3.0 3-11 mmol/L Blood Urea Nitrogen 27 7-18 mg/dl Creatinine 0.86 0.60-1.20 mg/dl Est Creatinine Clear Calc Drug Dose 37.8 ml/min Estimated GFR () 71.4 Estimated GFR (Non- 61.6 BUN/Creatinine Ratio 31.2 10-20 Random Glucose 99 70-99 mg/dl Calcium Level 8.7 8.5-10.1 mg/dl Total Bilirubin 0.5 0.2-1 mg/dl Direct Bilirubin 0.2 0-0.2 mg/dl Aspartate Amino Transf (AST/SGOT) 18 15-37 U/L Alanine Aminotransferase (ALT/SGPT) 7 12-78 U/L Alkaline Phosphatase 84 45-117 U/L Total Creatine Kinase 69 26-192 U/L Creatine Kinase MB 1.8 0.5-3.6 ng/ml Creatine Kinase MB Ratio 2.6 0-3.0 Total Protein 5.8 6.4-8.2 gm/dl Albumin 3.4 3.4-5.0 gm/dl Lipase 242 73-393 U/L Thyroid Stimulating Hormone (TSH) 0.870 0.300-4.500 uIu/ml Bedside D-Dimer > 450 0-450 ng/mlFEU Bedside Troponin I < 0.030 0-0.045 ng/ml [id number]-Uks-[id number]-Type Natriuretic Peptide 472 0-1800 pg/ml Urine Color YELLOW Urine Appearance CLEAR CLEAR Urine pH 7.5 4.5-7.5 Urine Specific Nelson 1.024 1.000-1.030 Urine Protein NEG NEG Urine Glucose (UA) NEG NEG Urine Ketones NEG NEG Urine Occult Blood 3+ NEG Urine Nitrite NEG NEG Urine Bilirubin NEG NEG Urine Urobilinogen NEG NEG Urine Leukocyte Esterase SMALL NEG Urine WBC (Auto) 10-30 0-5 /hpf Urine RBC (Auto) 0-4 0-4 /hpf Urine Hyaline Casts (Auto) 1-5 0-5 /lpf Urine Epithelial Cells (Auto) 10-20 0-5 /lpf Urine Bacteria (Auto) NEG NEG Troponin I < 0.015 0-0.045 ng/ml Microbiology Results 09/01/16 Urine Culture, Received Pending Impression Patient is a 85 year old female with a 4 day history of maroon-colored stools that were painless in nature without nausea or vomiting. There has been approximate 20 pound weight loss in the patient does use NSAIDs for joint aches. The differential diagnosis includes lower sources of GI bleeding that include possibly ischemic colitis, bleeding from an AVM, mucosal lesions and possibly upper sources of bleeding given the patient's use of Aleve. These would include peptic ulcer disease gastritis. Portal hypertension is less likely. Plan I made the following recommendations: We'll keep the patient nothing by mouth except for medications after midnight and begin a bowel preparation this evening. This is in anticipation for an upper endoscopy and colonoscopy to be performed tomorrow afternoon. Would continue to follow H&H serially and placed the patient on PPI therapy along with avoiding NSAIDs or aspirin products. Further recommendations once the endoscopic examinations are completed. Thank you for allowing up to the care of this pleasant lady
[2016-09-01 23:35] VITALS: BP 186/60; PULSE 67; TEMP 36.7; O2SAT 98
[2016-09-01] MEDS: HydrALAZINE HCL 20 MG/ML VIAL IV. PRN (23:41)
[2016-09-02] VITALS (17 sets, daily range): BP systolic 90–194; BP diastolic 50–84; PULSE 67–93; TEMP 36.5–36.8; O2SAT 94–98
[2016-09-02] MEDS: LAVAGE SOLUTION 4000ML PO SCH ×3 (01:41→11:11)
[2016-09-02 04:18] LABS: BASO % 0.2 %; BASO ABS # 0.01 K/uL (0-0.2); COMPLETE YES; EOS % 1.6 %; HEMATOCRIT 32.7 % (37-47); IG% 0.4 %; LYMPH % 19.4 %; LYMPH ABS # 0.97 K/uL (1.2-3.4); MEAN CELL VOLUME 93.2 fL (80-100); MEAN CORPUSCULAR HEMOGLOBIN 32.5 pg (25-34); MEAN CORPUSCULAR HGB CONC 34.9 g/dl (32-36); MEAN PLATELET VOLUME 9.8 fL (7.4-10.4); MONO % 10.2 %; NEUT % 68.2 %; PLATELET COUNT 189 K/uL (130-400); RED BLOOD COUNT 3.51 M/uL (4.2-5.4); WHITE BLOOD COUNT 5.01 K/uL (4.8-10.8)
[2016-09-02 04:51] LABS: BLOOD UREA NITROGEN 15 mg/dl (7-18); CALCIUM 9.2 mg/dl (8.5-10.1); CARBON DIOXIDE 31 mmol/L (21-32); CHLORIDE 110 mmol/L (98-107); CREATININE 0.63 mg/dl (0.60-1.20); GLUCOSE 87 mg/dl (70-99); POTASSIUM 4.2 mmol/L (3.5-5.1); SODIUM 144 mmol/L (136-145)
[2016-09-02] MEDS: ESCITALOPRAM OXALATE 10 MG TAB PO SCH (08:30)
[2016-09-02] MEDS: CALCIUM CARBONATE 1250MG TAB PO SCH (08:31)
[2016-09-02] MEDS: VITAMIN B COMPLEX TAB PO SCH (08:31)
[2016-09-02] MEDS: CHOLECALCIFEROL 1000 INTER.UNIT TAB PO SCH (08:31)
[2016-09-02] MEDS: PANTOprazole SOD 40 MG TAB PO SCH (08:31)
[2016-09-02] MEDS: THIAMINE HCL 100 MG TAB PO SCH (08:31)
[2016-09-02] MEDS: HydrALAZINE HCL 20 MG/ML VIAL IV. PRN (08:32)
[2016-09-02] MEDS: CARBIDOPA/LEVODOPA 25/100MG TAB PO SCH ×3 (08:32→20:02)
[2016-09-02] MEDS ORDERED: METOPROLOL SUCC 25MG EXT REL TAB PO SCH (09:00)
[2016-09-02] MEDS: ACETAMINOPHEN 325 MG TAB PO PRN ×2 (09:01→23:32)
--- NOTE | 2016-09-02 09:25 | ECHOCARDIOGRAM REPORT ---
*NOTICE TO RECEIVING CONSTITUTION PARTY AGENCY This information is strictly Confidential and protected under [place] law. [place] law prohibits you from making any further disclosure of this information unless further disclosure is expressly permitted by the written consent of the person to whom it pertains or is authorized by law. A general authorization for the release of medical or other information is not sufficient for this purpose. Hospital accepts no responsibility if the information is made available to any other person, INCLUDING THE PATIENT. Interpretation Summary * Name: GENIE QUINONES Study Date: 09/02/2016 06:23 AM BP: 158/84 mmHg * Patient Location: C.2T\S\E219\S\1 HR: 67 * : 1930 (M/d/yyyy) Gender: Female Height: 62 in * Age: 85 yrs Ethnicity: CA Weight: 113 lb * Ordering Physician: Jamia Bhatt * Referring Physician: Self, Referred * Performed By: Kandace Nunez [facility] * * Reason For Study: MURMUR * BSA: 1.5 m2 * -- Conclusions -- * There is moderate concentric left ventricular hypertrophy. * Left ventricular systolic function is normal. * Grade I diastolic dysfunction, (abnormal relaxation pattern). * Mild aortic regurgitation. * Mild to moderate valvular aortic stenosis. * Right ventricular systolic pressure is normal. * Compared to a study from 2014, there is now an element of aortic stenosis Procedure Details * A complete two-dimensional transthoracic echocardiogram was performed (2D, M-mode, Doppler and color flow Doppler). Left Ventricle * The left ventricle is normal in size. * There is moderate concentric left ventricular hypertrophy. * The basal septum is thickened and angulated consistent with sigmoid septum. * Ejection Fraction = 50-55%. * Left ventricular systolic function is normal. * Grade I diastolic dysfunction, (abnormal relaxation pattern). Right Ventricle * The right ventricle is grossly normal size. * The right ventricular systolic function is normal. Atria * The left atrial size is normal. * Right atrial size is normal. Mitral Valve * The mitral valve is grossly normal. * Significant mitral regurgitation is absent. Tricuspid Valve * The tricuspid valve anatomy is normal. * There is mild tricuspid regurgitation. * Right ventricular systolic pressure is normal. Aortic Valve * The aortic valve is trileaflet. * Mild to moderate valvular aortic stenosis. * Mild aortic regurgitation. Great Vessels * The aortic root is normal size. Pericardium/Pleural * There is no pericardial effusion. Great Vessels * Normal inferior vena cava diameter and respiratory variation suggests normal central venous pressure. MMode 2D Measurements and Calculations IVSd 1.2 cm IVSs 1.7 cm LVIDd 3.9 cm LVIDs 2.3 cm LVPWd 1.0 cm LVPWs 1.2 cm IVS/LVPW 1.1 FS 41.9 % EDV(Teich) 67.3 ml ESV(Teich) 17.8 ml EF(Teich) 73.5 % EDV(cubed) 60.9 ml ESV(cubed) 11.9 ml EF(cubed) 80.4 % % IVS thick 47.9 % % LVPW thick 13.4 % LV mass(C)d 142.9 grams LV mass(C)dI 95.3 grams/m\S\2 LV mass(C)s 107.5 grams LV mass(C)sI 71.7 grams/m\S\2 SV(Teich) 49.4 ml SI(Teich) 33.0 ml/m\S\2 SV(cubed) 48.9 ml SI(cubed) 32.6 ml/m\S\2 Ao root diam 3.0 cm Ao root area 7.2 cm\S\2 LA dimension 2.1 cm LA/Ao 0.70 LVOT diam 2.0 cm LVOT area 3.1 cm\S\2 LVAd ap4 29.5 cm\S\2 LVLd ap4 7.4 cm EDV(MOD-sp4) 98.0 ml EDV(sp4-el) 99.7 ml LVAs ap4 18.6 cm\S\2 LVLs ap4 6.3 cm ESV(MOD-sp4) 46.7 ml ESV(sp4-el) 46.7 ml EF(MOD-sp4) 52.4 % EF(sp4-el) 53.2 % LVAd ap2 22.9 cm\S\2 LVLd ap2 7.0 cm EDV(MOD-sp2) 61.6 ml EDV(sp2-el) 63.2 ml LVAs ap2 15.2 cm\S\2 LVLs ap2 6.1 cm ESV(MOD-sp2) 30.5 ml ESV(sp2-el) 32.3 ml EF(MOD-sp2) 50.5 % EF(sp2-el) 49.0 % LVLd %diff -5.37 % EDV(MOD-bp) 77.0 ml LVLs %diff -2.85 % ESV(MOD-bp) 36.8 ml EF(MOD-bp) 52.1 % SV(MOD-sp4) 51.3 ml SI(MOD-sp4) 34.2 ml/m\S\2 SV(MOD-sp2) 31.1 ml SI(MOD-sp2) 20.7 ml/m\S\2 SV(MOD-bp) 40.1 ml SI(MOD-bp) 26.8 ml/m\S\2 SV(sp4-el) 53.0 ml SI(sp4-el) 35.3 ml/m\S\2 SV(sp2-el) 31.0 ml SI(sp2-el) 20.7 ml/m\S\2 Doppler Measurements and Calculations MV E max zakiya 70.1 cm/sec MV A max zakiya 114.9 cm/sec MV E/A 0.61 MV P1/2t max zakiya 77.7 cm/sec MV P1/2t 81.5 msec MVA(P1/2t) 2.7 cm\S\2 MV dec slope 279.2 cm/sec\S\2 MV dec time 0.33 sec Ao V2 max 283.7 cm/sec Ao max PG 32.2 mmHg Ao max PG (full) 24.3 mmHg GUANAKITO(V,A) 1.6 cm\S\2 GUANAKITO(V,D) 1.6 cm\S\2 LV V1 max PG 7.9 mmHg LV V1 max 140.2 cm/sec PA V2 max 115.4 cm/sec PA max PG 5.3 mmHg TR max zakiya 260.1 cm/sec
[2016-09-02] MEDS ORDERED: NURSING VERBAL MED ORDER ONE ×2 (10:00→11:15)
[2016-09-02] MEDS ORDERED: MAGNESIUM CITRATE 296 ML/BTL PO SCH (10:15)
[2016-09-02] MEDS ORDERED: SOD PHOSPHATE/SOD BIPHOSPHATE ENEMA 132 ML BTL PR SCH (10:15)
[2016-09-02] MEDS ORDERED: SODIUM CHLORIDE 0.9% 1000ML 1,000 ML IV SCH (11:30)
[2016-09-02 11:33] LABS: HEMATOCRIT 30.6 % (37-47)
--- NOTE | 2016-09-02 12:11 | Hospitalist Progress Note ---
Hospitalist Progress Note Date of Service Sep 02, 2016. Subjective Pt evaluation today including: conversation w/ patient, physical exam, chart review, lab review, review of studies, review of inpatient medication list Pain: None PO Intake: NPO Voiding: voiding difficulty (urinary retention overnight, did void this morning ) Patient reports feeling fatigued and weak. Per nursing, she did have a syncopal episode on the commode this morning but was easily aroused. She also had some nausea and vomited once. Her blood pressure was found to be 90/50, and a 1L NSS bolus was ordered. Her blood pressure did improve to 127/61 following the bolus, and her nausea has since resolved after receiving Zofran. The patient has not been able to complete the bowel prep. The patient was also reportedly having urinary retention overnight, but she was able to void this morning, and repeat bladder scan showed residual volume of only ~40 cc. Nursing also reports that the patient is having bright red blood per rectum. The patient denies fevers, chills, sweats, chest pain, palpitations, claudication, cough, wheezing, shortness of breath, abdominal pain, dysuria, hematuria, urinary retention, paralysis, numbness and tingling. Additional Comments: See HPI for pertinent positives and negatives. All other systems reviewed and negative. Objective Vital Signs Date Time Temp Pulse Resp B/P (MAP) Pulse Ox O2 Delivery O2 Flow Rate FiO2 09/02/16 11:39 72 127/61 (83) 09/02/16 11:22 75 103/57 (72) 09/02/16 10:54 36.6 74 16 90/50 (63) 96 09/02/16 08:52 93 170/72 (104) 09/02/16 08:29 182/75 (110) 09/02/16 07:02 36.7 68 20 194/73 (113) 98 Room Air 180/68 (105) 09/02/16 04:30 158/84 (108) 09/02/16 04:08 36.8 71 20 98 Room Air 09/02/16 04:00 94 Room Air 09/02/16 00:50 94 Room Air 09/01/16 23:35 36.7 67 18 186/60 (102) 98 Room Air 09/01/16 20:00 Room Air 09/01/16 19:16 36.8 66 18 187/65 (105) 99 Room Air 09/01/16 16:46 36.4 72 18 212/122 (152) 98 Room Air 09/01/16 16:30 70 18 206/77 94 Room Air 09/01/16 16:03 73 09/01/16 15:45 94 Room Air 09/01/16 14:34 81 18 213/81 94 Room Air 09/01/16 13:28 60 22 173/64 97 Room Air 09/01/16 12:10 63 09/01/16 11:52 36.9 65 24 177/75 98 Room Air 09/01/16 11:52 98 Room Air 09/01/16 11:52 98 Room Air Physical Exam Notes: General appearance: Well-developed, well-nourished, no apparent distress Head: Normocephalic, atraumatic Eyes: Normal inspection, PERRL, EOMI ENT: Normal ENT inspection, hearing grossly normal, pharynx normal Neck: Supple, no JVD, trachea midline Respiratory/Chest: Lungs clear to auscultation, normal breath sounds, no respiratory distress Cardiovascular: +Systolic murmur. Regular rate & rhythm, no gallop Abdomen/GI: Normal bowel sounds, non-tender, soft Extremities/Musculoskeletal: Normal inspection, no calf tenderness, no pedal edema Neurological/Psych: Alert, normal mood/affect, oriented x 3 Skin: Normal color, warm/dry, no rash Laboratory Results Last 24 Hours Test 09/01/16 12:44 09/01/16 12:48 09/01/16 18:15 09/01/16 19:51 White Blood Count 5.24 K/uL Red Blood Count 3.24 M/uL Hemoglobin 10.2 g/dL 11.0 g/dL Hematocrit 30.2 % 33.3 % Mean Corpuscular Volume 93.2 fL Mean Corpuscular Hemoglobin 31.5 pg Mean Corpuscular Hemoglobin Concent 33.8 g/dl Platelet Count 177 K/uL Mean Platelet Volume 9.3 fL Neutrophils (%) (Auto) 77.0 % Lymphocytes (%) (Auto) 13.0 % Monocytes (%) (Auto) 8.4 % Eosinophils (%) (Auto) 0.8 % Basophils (%) (Auto) 0.2 % Neutrophils # (Auto) 4.04 K/uL Lymphocytes # (Auto) 0.68 K/uL Monocytes # (Auto) 0.44 K/uL Eosinophils # (Auto) 0.04 K/uL Basophils # (Auto) 0.01 K/uL RDW Standard Deviation 44.4 fL RDW Coefficient of Variation 13.0 % Immature Granulocyte % (Auto) 0.6 % Immature Granulocyte # (Auto) 0.03 K/uL Prothrombin Time 10.7 SECONDS Prothromb Time International Ratio 1.0 Activated Partial Thromboplast Time 24.6 SECONDS Partial Thromboplastin Ratio 0.9 Sodium Level 142 mmol/L Potassium Level 4.1 mmol/L Chloride Level 108 mmol/L Carbon Dioxide Level 31 mmol/L Anion Gap 3.0 mmol/L Blood Urea Nitrogen 27 mg/dl Creatinine 0.86 mg/dl Est Creatinine Clear Calc Drug Dose 37.8 ml/min Estimated GFR () 71.4 Estimated GFR (Non- 61.6 BUN/Creatinine Ratio 31.2 Random Glucose 99 mg/dl Calcium Level 8.7 mg/dl Total Bilirubin 0.5 mg/dl Direct Bilirubin 0.2 mg/dl Aspartate Amino Transf (AST/SGOT) 18 U/L Alanine Aminotransferase (ALT/SGPT) 7 U/L Alkaline Phosphatase 84 U/L Total Creatine Kinase 69 U/L Creatine Kinase MB 1.8 ng/ml Creatine Kinase MB Ratio 2.6 Total Protein 5.8 gm/dl Albumin 3.4 gm/dl Lipase 242 U/L Thyroid Stimulating Hormone (TSH) 0.870 uIu/ml Bedside D-Dimer > 450 ng/mlFEU Bedside Troponin I < 0.030 ng/ml [id number] Natriuretic Peptide 472 pg/ml Urine Color YELLOW Urine Appearance CLEAR Urine pH 7.5 Urine Specific [place] 1.024 Urine Protein NEG Urine Glucose (UA) NEG Urine Ketones NEG Urine Occult Blood 3+ Urine Nitrite NEG Urine Bilirubin NEG Urine Urobilinogen NEG Urine Leukocyte Esterase SMALL Urine WBC (Auto) 10-30 /hpf Urine RBC (Auto) 0-4 /hpf Urine Hyaline Casts (Auto) 1-5 /lpf Urine Epithelial Cells (Auto) 10-20 /lpf Urine Bacteria (Auto) NEG Troponin I < 0.015 ng/ml Test 09/02/16 03:54 09/02/16 11:17 White Blood Count 5.01 K/uL Red Blood Count 3.51 M/uL Hemoglobin 11.4 g/dL 10.2 g/dL Hematocrit 32.7 % 30.6 % Mean Corpuscular Volume 93.2 fL Mean Corpuscular Hemoglobin 32.5 pg Mean Corpuscular Hemoglobin Concent 34.9 g/dl Platelet Count 189 K/uL Mean Platelet Volume 9.8 fL Neutrophils (%) (Auto) 68.2 % Lymphocytes (%) (Auto) 19.4 % Monocytes (%) (Auto) 10.2 % Eosinophils (%) (Auto) 1.6 % Basophils (%) (Auto) 0.2 % Neutrophils # (Auto) 3.42 K/uL Lymphocytes # (Auto) 0.97 K/uL Monocytes # (Auto) 0.51 K/uL Eosinophils # (Auto) 0.08 K/uL Basophils # (Auto) 0.01 K/uL RDW Standard Deviation 44.6 fL RDW Coefficient of Variation 13.1 % Immature Granulocyte % (Auto) 0.4 % Immature Granulocyte # (Auto) 0.02 K/uL Sodium Level 144 mmol/L Potassium Level 4.2 mmol/L Chloride Level 110 mmol/L Carbon Dioxide Level 31 mmol/L Anion Gap 3.0 mmol/L Blood Urea Nitrogen 15 mg/dl Creatinine 0.63 mg/dl Est Creatinine Clear Calc Drug Dose 51.7 ml/min Estimated GFR () 94.8 Estimated GFR (Non- 81.8 BUN/Creatinine Ratio 23.0 Random Glucose 87 mg/dl Calcium Level 9.2 mg/dl Troponin I < 0.015 ng/ml Diagnostic Results Echo: Interpretation Summary * Name: GENIE QUINONES Study Date: 09/02/2016 06:23 AM BP: 158/84 mmHg * Patient Location: [facility]\S\1 HR: 67 * : 1930 (M/d/yyyy) Gender: Female Height: 62 in * Age: 85 yrs Ethnicity: [place] Weight: 113 lb * Ordering Physician: Jamia Bhatt * Referring Physician: Self, Referred * Performed By: Kandace Nunez RCS * * Reason For Study: MURMUR * BSA: 1.5 m2 * -- Conclusions -- * There is moderate concentric left ventricular hypertrophy. * Left ventricular systolic function is normal. * Grade I diastolic dysfunction, (abnormal relaxation pattern). * Mild aortic regurgitation. * Mild to moderate valvular aortic stenosis. * Right ventricular systolic pressure is normal. * Compared to a study from 2014, there is now an element of aortic stenosis Procedure Details * A complete two-dimensional transthoracic echocardiogram was performed (2D, M- mode, Doppler and color flow Doppler). Left Ventricle * The left ventricle is normal in size. * There is moderate concentric left ventricular hypertrophy. * The basal septum is thickened and angulated consistent with sigmoid septum. * Ejection Fraction = 50-55%. * Left ventricular systolic function is normal. * Grade I diastolic dysfunction, (abnormal relaxation pattern). Right Ventricle * The right ventricle is grossly normal size. * The right ventricular systolic function is normal. Atria * The left atrial size is normal. * Right atrial size is normal. Mitral Valve * The mitral valve is grossly normal. * Significant mitral regurgitation is absent. Tricuspid Valve * The tricuspid valve anatomy is normal. * There is mild tricuspid regurgitation. * Right ventricular systolic pressure is normal. Aortic Valve * The aortic valve is trileaflet. * Mild to moderate valvular aortic stenosis. * Mild aortic regurgitation. Great Vessels * The aortic root is normal size. Pericardium/Pleural * There is no pericardial effusion. Great Vessels * Normal inferior vena cava diameter and respiratory variation suggests normal central venous pressure. Assessment and Plan 85 y/o female with a history of Parkinson's disease, HTN, HLD, depression, osteoarthritis, Vit D deficiency, Vit B deficiency, low back pain, gait disturbance, peripheral neuropathy, and bilateral TKAs, R hip replacement and R shoulder replacement who presents with maroon colored stools x 3 days which were heme positive, along with shortness of breath. Generalized weakness, GI bleed--ongoing - Admit to telemetry. No acute events overnight. Pt in sinus rhythm, HR 60s- 80s - Troponin negative x 3 - EKG was reviewed and appears to be without any acute ischemia or ST wave inversions. - Consult GI, appreciate recs: EGD/colonoscopy canceled for today due to hemodynamic instability. Will reschedule for tomorrow. Clear liquid diet and continue bowel prep. NPO after midnight. - Clear liquid diet for now - NPO after midnight except meds - Continue NSS at 75 cc/hr - Check H&H q6h - Continue Protonix 40 mg PO qd - Zofran 4 mg IV q6h prn nausea Syncopal episode--resolved -Continue to monitor, IVF as above Hx frequent falls - PT/OT evals - Pt from independent side at the [facility] Hypertension--stable now. Had been hypertensive on arrival, then hypotensive. Stable now after IVF bolus - BP moderately elevated in the 170/75 and peaked at 210s/80s, likely secondary to anxiety - Hydralazine 10 mg IV prn for SBP > 180 or DBP > 110 - Continue metoprolol succinate 25 mg QAM Shortness of breath--resolved - PT reports this has been worsening over the past few months - Chest x-ray reviewed and is negative for any acute findings - Does not require supplemental oxygen at baseline, currently O2 sats are 94% on room air Parkinson's disease - Continue Sinemet 25/100 mg 2 tabs TID - Follows with Dr. Nogueira has an outpatient Hx of bilateral TKA, right shoulder replacement, right hip replacement - Most recently saw Dr. Fabian for right knee revision in 2014 - Shoulder replaced by Dr. Schmitt in 2016 Depression - Continue Lexapro 20 mg daily Chronic low back pain - She takes Tylenol as an outpatient, but avoid tramadol as this has caused severe confusion for the patient in previous trials. Vitamin D deficiency, Vitamin B deficiency - Continue supplementation DVT prophylaxis -Hold chemical prophylaxis due to GI bleed -[facility] Code Status -Level V, DO NOT RESUSCITATE
[2016-09-02] MEDS: SODIUM CHLORIDE 0.9% 1000ML 1,000 ML IV SCH (13:25)
[2016-09-02] MEDS ORDERED: LAVAGE SOLUTION 4000ML PO SCH (16:00)
--- NOTE | 2016-09-02 16:35 | Gastroenterology Progress Note ---
Progress Note Date of Service: Sep 02, 2016 Subjective Pt evaluation today including: conversation w/ patient The patient events since the last GI assessment were reviewed. The patient had difficulty with her bowel prep overnight and this morning attempts were made to provide an alternate therapy however she became near syncopal in the bathroom. Therefore upper endoscopy and cause was postponed today. The patient is also had labile blood pressure requiring hydralazine and then IV fluids. During her bowel prep continued to have some rectal bleeding although according to the patient the intensity of the room colored stools is diminished. She denies any abdominal pain nausea vomiting. Review of Systems Constitutional: + weakness, No fever, No chills Eyes: No see HPI, No worsening of vision, No eye pain, No redness, No discharge , No diplopia, No problem reported ENT: + see HPI Respiratory: No cough, No sputum Cardiac: No chest pain, No orthopnea, No edema Abdomen: + GI bleeding, No pain, No nausea, No vomiting Musculoskeletal: No muscle pain Female : No urinary frequency Neuro: No memory loss, No numbness/tingling Psych: + see HPI Heme: No abnormal bleeding/bruising Skin: No rash Medications Current Inpatient Medications Medications (Trade) Dose Ordered Sig/Genet Route Start Time Stop Time Status Last Admin Dose Admin Ioversol (Optiray 320) 125 ml UD PRN IV 09/01/16 14:00 09/05/16 13:59 Acetaminophen (Tylenol Tab) 650 mg Q4H PRN PO 09/01/16 15:45 10/01/16 15:44 09/02/16 09:01 650 MG Ondansetron HCl (Zofran Inj) 4 mg Q6H PRN IV 09/01/16 15:45 10/01/16 15:44 09/02/16 09:21 4 MG Carbidopa/Levodopa (Sinemet 25/ 100MG Tab) 2 tab TID PO 09/01/16 21:00 10/01/16 20:59 09/02/16 13:25 2 TAB Cholecalciferol (Vitamin D Tab) 1,000 inter.unit DAILY PO 09/02/16 09:00 10/02/16 08:59 09/02/16 08:31 1,000 INTER.UNIT Escitalopram Oxalate (Lexapro Tab) 20 mg QAM PO 09/02/16 09:00 10/02/16 08:59 09/02/16 08:30 20 MG Metoprolol Succinate (Toprol Xl Tab) 25 mg QAM PO 09/02/16 09:00 10/02/16 08:59 09/02/16 08:32 25 MG Pantoprazole Sodium (Protonix Tab) 40 mg QAM PO 09/02/16 09:00 10/02/16 08:59 09/02/16 08:31 40 MG Thiamine HCl (Vitamin B-1 Tab) 100 mg DAILY PO 09/02/16 09:00 10/02/16 08:59 09/02/16 08:31 100 MG Vitamin B Complex (Vitamin B Complex) 1 tab QAM PO 09/02/16 09:00 10/02/16 08:59 09/02/16 08:31 1 TAB Calcium Carbonate (oS-Jac 500 TAB) 1,250 mg QAM PO 09/02/16 09:00 10/02/16 08:59 09/02/16 08:31 1,250 MG Hydralazine HCl (HydrALAZINE INJ) 10 mg Q8 PRN IV. 09/01/16 16:45 10/01/16 16:44 09/02/16 08:32 10 MG Lorazepam (Ativan Tab) 0.5 mg Q8H PRN PO 09/01/16 18:15 10/01/16 18:14 09/01/16 18:34 0.5 MG Sodium Chloride 1,000 ml @ 75 mls/hr [id number] IV 09/02/16 13:10 10/02/16 13:09 09/02/16 13:25 75 MLS/HR Polyethylene Glycol/ Electrolytes (Golytely Soln) 1 dose TODAY@1600 PO 09/02/16 16:00 09/02/16 23:59 09/02/16 16:20 1 DOSE Objective Vital Signs Date Time Temp Pulse Resp B/P (MAP) Pulse Ox O2 Delivery O2 Flow Rate FiO2 09/02/16 15:40 80 97 09/02/16 15:37 36.7 67 16 123/58 (79) 95 Room Air 09/02/16 13:32 133/65 (87) 09/02/16 12:00 Room Air 09/02/16 11:39 72 127/61 (83) 09/02/16 11:22 75 103/57 (72) 09/02/16 10:55 36.6 78 20 90/50 (63) 96 Room Air 09/02/16 10:54 36.6 74 16 90/50 (63) 96 09/02/16 08:52 93 170/72 (104) 09/02/16 08:29 182/75 (110) 09/02/16 08:00 98 Room Air 09/02/16 07:02 36.7 68 20 194/73 (113) 98 Room Air 180/68 (105) 09/02/16 04:30 158/84 (108) 09/02/16 04:08 36.8 71 20 98 Room Air 09/02/16 04:00 94 Room Air 09/02/16 00:50 94 Room Air 09/01/16 23:35 36.7 67 18 186/60 (102) 98 Room Air 09/01/16 20:00 Room Air 09/01/16 19:16 36.8 66 18 187/65 (105) 99 Room Air 09/01/16 16:46 36.4 72 18 212/122 (152) 98 Room Air 09/01/16 16:30 70 18 206/77 94 Room Air Physical Exam General Appearance: WD/WN, no apparent distress Eyes: normal inspection ENT: hearing grossly normal Neck: supple, no adenopathy, no JVD Respiratory/Chest: chest non-tender, lungs clear, normal breath sounds Cardiovascular: regular rate, rhythm, no edema, + systolic murmur Abdomen: normal bowel sounds, non tender, soft, no organomegaly Extremities: normal range of motion, normal inspection, no pedal edema Neurologic/Psych: no motor/sensory deficits, alert, normal mood/affect, oriented x 3 Skin: normal color, no rash Patient is awake alert and oriented 3 oral mucosa moist, heart normal S1-S2, there is a systolic ejection murmur throughout the precordium. Lungs clear to auscultation. Abdomen soft flat, nontender nondistended with normal active bowel sounds extremities without clubbing cyanosis or edema. A rectal exam is deferred Laboratory Results Last 24 Hours Test 09/01/16 18:15 09/01/16 19:51 09/02/16 03:54 09/02/16 11:17 Urine Color YELLOW Urine Appearance CLEAR Urine pH 7.5 Urine Specific [place] 1.024 Urine Protein NEG Urine Glucose (UA) NEG Urine Ketones NEG Urine Occult Blood 3+ Urine Nitrite NEG Urine Bilirubin NEG Urine Urobilinogen NEG Urine Leukocyte Esterase SMALL Urine WBC (Auto) 10-30 /hpf Urine RBC (Auto) 0-4 /hpf Urine Hyaline Casts (Auto) 1-5 /lpf Urine Epithelial Cells (Auto) 10-20 /lpf Urine Bacteria (Auto) NEG Hemoglobin 11.0 g/dL 11.4 g/dL 10.2 g/dL Hematocrit 33.3 % 32.7 % 30.6 % Troponin I < 0.015 ng/ml < 0.015 ng/ml White Blood Count 5.01 K/uL Red Blood Count 3.51 M/uL Mean Corpuscular Volume 93.2 fL Mean Corpuscular Hemoglobin 32.5 pg Mean Corpuscular Hemoglobin Concent 34.9 g/dl Platelet Count 189 K/uL Mean Platelet Volume 9.8 fL Neutrophils (%) (Auto) 68.2 % Lymphocytes (%) (Auto) 19.4 % Monocytes (%) (Auto) 10.2 % Eosinophils (%) (Auto) 1.6 % Basophils (%) (Auto) 0.2 % Neutrophils # (Auto) 3.42 K/uL Lymphocytes # (Auto) 0.97 K/uL Monocytes # (Auto) 0.51 K/uL Eosinophils # (Auto) 0.08 K/uL Basophils # (Auto) 0.01 K/uL RDW Standard Deviation 44.6 fL RDW Coefficient of Variation 13.1 % Immature Granulocyte % (Auto) 0.4 % Immature Granulocyte # (Auto) 0.02 K/uL Sodium Level 144 mmol/L Potassium Level 4.2 mmol/L Chloride Level 110 mmol/L Carbon Dioxide Level 31 mmol/L Anion Gap 3.0 mmol/L Blood Urea Nitrogen 15 mg/dl Creatinine 0.63 mg/dl Est Creatinine Clear Calc Drug Dose 51.7 ml/min Estimated GFR () 94.8 Estimated GFR (Non- 81.8 BUN/Creatinine Ratio 23.0 Random Glucose 87 mg/dl Calcium Level 9.2 mg/dl Assessment and Plan Patient with anemia of unclear origin with 20 pound weight loss. It has been at least a decade since her colonoscopy in [facility] and she is not sure she's had an upper endoscopy. We will continue bowel preparation with tentative plans for upper endoscopy and colonoscopy tomorrow. Hemoglobin remains stable overall. Further recommendations to follow. Thank you for allowing me to participate in this patient's care.
[2016-09-02 17:22] LABS: HEMATOCRIT 32.6 % (37-47)
[2016-09-02 23:35] LABS: HEMATOCRIT 33.9 % (37-47)
[2016-09-03] VITALS (12 sets, daily range): BP systolic 132–208; BP diastolic 55–75; PULSE 65–73; TEMP 36.6–37; O2SAT 93–98
[2016-09-03] MEDS: SODIUM CHLORIDE 0.9% 1000ML 1,000 ML IV SCH (03:03)
[2016-09-03 04:59] LABS: BASO % 0.2 %; BASO ABS # 0.01 K/uL (0-0.2); COMPLETE YES; EOS % 1.5 %; HEMATOCRIT 29.5 % (37-47); IG% 0.2 %; LYMPH % 18.5 %; LYMPH ABS # 0.84 K/uL (1.2-3.4); MEAN CELL VOLUME 93.1 fL (80-100); MEAN CORPUSCULAR HEMOGLOBIN 31.5 pg (25-34); MEAN CORPUSCULAR HGB CONC 33.9 g/dl (32-36); MEAN PLATELET VOLUME 9.4 fL (7.4-10.4); MONO % 9.9 %; NEUT % 69.7 %; PLATELET COUNT 166 K/uL (130-400); RED BLOOD COUNT 3.17 M/uL (4.2-5.4); WHITE BLOOD COUNT 4.53 K/uL (4.8-10.8)
[2016-09-03 05:46] LABS: BUN/CREATININE RATIO 16.6 (10-20); CALCIUM 8.3 mg/dl (8.5-10.1); CREATININE 0.58 mg/dl (0.60-1.20); POTASSIUM 3.5 mmol/L (3.5-5.1)
[2016-09-03] MEDS ORDERED: D5W AND 1/2NSS 1,000 ML IV SCH (08:30)
[2016-09-03] MEDS: ESCITALOPRAM OXALATE 10 MG TAB PO SCH (09:18)
[2016-09-03] MEDS: PANTOprazole SOD 40 MG TAB PO SCH (09:18)
[2016-09-03] MEDS: CHOLECALCIFEROL 1000 INTER.UNIT TAB PO SCH (09:19)
[2016-09-03] MEDS: CALCIUM CARBONATE 1250MG TAB PO SCH (09:19)
[2016-09-03] MEDS: METOPROLOL SUCC 25MG EXT REL TAB PO SCH (09:19)
[2016-09-03] MEDS: CARBIDOPA/LEVODOPA 25/100MG TAB PO SCH ×3 (09:19→20:47)
[2016-09-03] MEDS: VITAMIN B COMPLEX TAB PO SCH (09:19)
[2016-09-03] MEDS: THIAMINE HCL 100 MG TAB PO SCH (09:19)
[2016-09-03] MEDS: LORAZEPAM 0.5 MG TAB PO PRN ×2 (09:22→20:49)
[2016-09-03] MEDS: ACETAMINOPHEN 325 MG TAB PO PRN (09:42)
[2016-09-03 12:19] LABS: HEMATOCRIT 31.2 % (37-47)
--- NOTE | 2016-09-03 13:16 | Progress Note ---
Subjective Date of Service: Sep 03, 2016. Subjective Pt evaluation today including: conversation w/ patient, conversation w/ family , physical exam, chart review, lab review, review of studies, review of inpatient medication list Sitting up in chair, reported feeling great, denied dizziness, no more syncope, anxious to have colonoscopy done Problem List Medical Problems: (1) GI bleed Status: Acute (2) Right knee pain Status: Acute (3) SOB (shortness of breath) Status: Acute Review of Systems Constitutional: No fever, No chills, No sweats, No weight loss, No weakness, No fatigue, No problem reported Eyes: No worsening of vision, No eye pain, No redness, No discharge, No diplopia ENT: No hearing loss, No unusual epistaxis, No nasal symptoms, No sore throat, No tinnitus, No dental problems, No trouble swallowing Respiratory: No cough, No sputum, No wheezing, No shortness of breath, No dyspnea on exertion, No dyspnea at rest, No hemoptysis Cardiac: No chest pain, No orthopnea, No PND, No edema, No claudication, No palpitations Abdomen: No pain, No nausea, No vomiting, No diarrhea, No constipation Musculoskeletal: No joint pain, No muscle pain, No swelling, No calf pain Female : No dysuria, No urinary frequency, No hematuria, No incontinence, No abnormal vaginal bleeding, No vaginal discharge Neurologic: No memory loss, No paralysis, No weakness, No numbness/tingling, No vertigo, No balance problems Psychiatric: No depression symptoms, No anhedonism, No anxiety, No insomnia, No substance abuse Heme: No abnormal bleeding/bruising, No clotting problems, No swollen lymph nodes, No night sweats Endo: No fatigue, No excessive thirst, No excessive urination Skin: No rash, No itch, No new/changing skin lesions, No color change, No bleeding Objective Vital Signs Date Time Temp Pulse Resp B/P (MAP) Pulse Ox O2 Delivery O2 Flow Rate FiO2 09/03/16 12:01 36.7 66 20 160/69 (99) 98 Room Air 09/03/16 12:00 Room Air 09/03/16 09:17 170/60 (96) 09/03/16 08:00 Room Air 09/03/16 07:02 36.8 70 20 190/72 (111) 97 Room Air 187/64 (105) 09/03/16 04:00 97 Room Air 09/03/16 03:18 36.8 69 16 174/59 (97) 97 Room Air 09/03/16 00:00 164/55 (91) 09/03/16 00:00 98 Room Air 09/02/16 23:45 36.5 71 20 184/66 (105) 98 Room Air 09/02/16 20:00 Room Air 09/02/16 19:32 36.6 68 18 189/74 (112) 97 Room Air 09/02/16 16:00 Room Air 09/02/16 15:40 80 97 09/02/16 15:37 36.7 67 16 123/58 (79) 95 Room Air 09/02/16 13:32 133/65 (87) Physical Exam General Appearance: WD/WN, no apparent distress, + pertinent finding (pleasant and conversational) Eyes: normal inspection, PERRL, EOMI, sclerae normal ENT: normal ENT inspection, hearing grossly normal, pharynx normal Neck: supple, no adenopathy, thyroid normal, no JVD, no carotid bruits, trachea midline Respiratory/Chest: chest non-tender, lungs clear, normal breath sounds, no respiratory distress, no accessory muscle use Cardiovascular: regular rate, rhythm, no edema, no gallop, no JVD, no murmur Abdomen: normal bowel sounds, non tender, soft, no organomegaly, no pulsatile mass Extremities: normal range of motion, non-tender, normal inspection, no pedal edema, no calf tenderness, normal capillary refill, pelvis stable Neurologic/Psychiatric: director religious education II-XII nml as tested, no motor/sensory deficits, alert, normal mood/affect, oriented x 3 Skin: normal color, warm/dry, no rash Lymphatic: no adenopathy Laboratory Results Last 24 Hours Test 09/02/16 17:02 09/02/16 23:25 09/03/16 04:49 09/03/16 11:55 Hemoglobin 10.8 g/dL 11.1 g/dL 10.0 g/dL 10.2 g/dL Hematocrit 32.6 % 33.9 % 29.5 % 31.2 % White Blood Count 4.53 K/uL Red Blood Count 3.17 M/uL Mean Corpuscular Volume 93.1 fL Mean Corpuscular Hemoglobin 31.5 pg Mean Corpuscular Hemoglobin Concent 33.9 g/dl Platelet Count 166 K/uL Mean Platelet Volume 9.4 fL Neutrophils (%) (Auto) 69.7 % Lymphocytes (%) (Auto) 18.5 % Monocytes (%) (Auto) 9.9 % Eosinophils (%) (Auto) 1.5 % Basophils (%) (Auto) 0.2 % Neutrophils # (Auto) 3.15 K/uL Lymphocytes # (Auto) 0.84 K/uL Monocytes # (Auto) 0.45 K/uL Eosinophils # (Auto) 0.07 K/uL Basophils # (Auto) 0.01 K/uL RDW Standard Deviation 44.8 fL RDW Coefficient of Variation 13.1 % Immature Granulocyte % (Auto) 0.2 % Immature Granulocyte # (Auto) 0.01 K/uL Sodium Level 146 mmol/L Potassium Level 3.5 mmol/L Chloride Level 113 mmol/L Carbon Dioxide Level 29 mmol/L Anion Gap 4.0 mmol/L Blood Urea Nitrogen 10 mg/dl Creatinine 0.58 mg/dl Est Creatinine Clear Calc Drug Dose 56.1 ml/min Estimated GFR () 97.4 Estimated GFR (Non- 84.0 BUN/Creatinine Ratio 16.6 Random Glucose 83 mg/dl Calcium Level 8.3 mg/dl Assessment and Plan 85 y/o female with a history of Parkinson's disease, HTN, HLD, depression, osteoarthritis, Vit D deficiency, Vit B deficiency, low back pain, gait disturbance, peripheral neuropathy, and bilateral TKAs, R hip replacement and R shoulder replacement who presents with maroon colored stools x 3 days which were heme positive, along with shortness of breath. Generalized weakness, GI bleed--ongoing -Continue to telemetry. No acute events overnight. Pt in sinus rhythm, HR 60s- 80s - Troponin negative x 3 - EKG was reviewed and appears to be without any acute ischemia or ST wave inversions. - Consult GI, appreciate recs: EGD/colonoscopy canceled for yesterday due to hemodynamic instability. Is planning to do it today - Continue NSS at 75 cc/hr - Check H&H q6h, which has been stable - Continue Protonix 40 mg PO qd - Zofran 4 mg IV q6h prn nausea Syncopal episode, likely from hypotension of the IV hydralazine use--resolved -Continue to monitor, IVF as above Hx frequent falls - PT/OT evals - [facility] [place] Accelerated hypertension , Increase metoprolol from 25 to 37.5 Parkinson's disease Hx of bilateral TKA, right shoulder replacement, right hip replacement Depression Chronic low back pain Vitamin D deficiency, Vitamin B deficiency The above condition is stable DVT prophylaxis -Hold chemical prophylaxis due to GI bleed -ERIN hill and [facility] Code Status -Level V, DO NOT RESUSCITATE Continued [facility] stay due to: other Discharge planning: home
--- NOTE | 2016-09-03 13:58 | History & Physical Bridge Note ---
H&P Re-Evaluation Bridge Note: I have examined the patient, reviewed the History & Physical and in the interval since the performance of the History & Physical I have noted the following changes of clinical significance: No changes noted
[2016-09-03] MEDS ORDERED: PROPOFOL IV EMULSION 10 MG/ML 20 ML VIAL IV ONE (14:54)
[2016-09-03] MEDS ORDERED: LIDOCAINE HCL 2% 2 ML VIAL (20MG/ML) ONE (14:54)
[2016-09-03] MEDS ORDERED: LABETALOL HCL IV 5 MG/ML 20ML IV ONE (14:54)
--- NOTE | 2016-09-03 15:03 | Anesthesiology Progress Note ---
Anesthesia Post Op Note Date & Time Sep 03, 2016 at 15:03 Vital Signs Pain Intensity: 5.0 Vital Signs Past 12 Hours Date Time Temp Pulse Resp B/P (MAP) Pulse Ox O2 Delivery O2 Flow Rate FiO2 09/03/16 13:37 190/77 (114) 09/03/16 13:31 36.7 66 20 197/85 (122) 97 Room Air 09/03/16 12:01 36.7 66 20 160/69 (99) 98 Room Air 09/03/16 12:00 Room Air 09/03/16 09:17 170/60 (96) 09/03/16 08:00 Room Air 09/03/16 07:02 36.8 70 20 190/72 (111) 97 Room Air 187/64 (105) 09/03/16 04:00 97 Room Air 09/03/16 03:18 36.8 69 16 174/59 (97) 97 Room Air Notes Mental Status: alert / awake / arousable, participated in evaluation Pt Amnestic to Procedure: Yes Nausea / Vomiting: adequately controlled Pain: adequately controlled Airway Patency, RR, SpO2: stable & adequate BP & HR: stable & adequate Hydration State: stable & adequate Anesthetic Complications: no major complications apparent
--- NOTE | 2016-09-03 15:04 | GI REPORT ---
Procedure Date: 09/03/2016 2:29 PM Procedure: Colonoscopy Indications: Hematochezia, Iron deficiency anemia secondary to chronic blood loss Medicines: Propofol per Anesthesia Complications: No immediate complications. Estimated blood loss: None. Estimated Blood Loss: Estimated blood loss: none. Procedure: Pre-Anesthesia Assessment: - Prior to the procedure, a History and Physical was performed, and patient medications and allergies were reviewed. The patient's tolerance of previous anesthesia was also reviewed. The risks and benefits of the procedure and the sedation options and risks were discussed with the patient. All questions were answered, and informed consent was obtained. Prior Anticoagulants: The patient has taken no previous anticoagulant or antiplatelet agents. ASA Grade Assessment: III - A patient with severe systemic disease. After reviewing the risks and benefits, the patient was deemed in satisfactory condition to undergo the procedure. After I obtained informed consent, the scope was passed under direct vision. Throughout the procedure, the patient's blood pressure, pulse, and oxygen saturations were monitored continuously. The scope was introduced through the anus and advanced to the terminal ileum, with identification of the appendiceal orifice and IC valve. The colonoscopy was performed without difficulty. The patient tolerated the procedure well. The quality of the bowel preparation was fair. Findings: The perianal and digital rectal examinations were normal. Pertinent negatives include normal sphincter tone, no palpable rectal lesions and no anal lesion or abnormality was detected. The terminal ileum appeared normal. Many small-mouthed diverticula were found in the entire colon. The exam was otherwise without abnormality. Non-bleeding internal hemorrhoids were found during retroflexion. The hemorrhoids were mild and small. Impression: - The examined portion of the ileum was normal. - Diverticulosis in the entire examined colon. - The examination was otherwise normal. - Non-bleeding internal hemorrhoids. - No specimens collected. Recommendation: - Return patient to hospital [facility] for ongoing care. - Advance diet as tolerated. - Continue present medications. MD Romero Dhillon MD 09/03/2016 3:03:52 PM This report has been signed electronically. Note Initiated On: 09/03/2016 2:29 PM I attest to the content of the Intraoperative Record and orders documented therein, exceptions below
--- NOTE | 2016-09-03 15:10 | GI REPORT ---
Procedure Date: 09/03/2016 2:11 PM Procedure: Upper GI endoscopy Indications: Iron deficiency anemia secondary to chronic blood loss, Weight loss Medicines: Propofol per Anesthesia Complications: No immediate complications. Estimated blood loss: Minimal. Estimated Blood Loss: Estimated blood loss was minimal. Procedure: Pre-Anesthesia Assessment: - Prior to the procedure, a History and Physical was performed, and patient medications and allergies were reviewed. The patient's tolerance of previous anesthesia was also reviewed. The risks and benefits of the procedure and the sedation options and risks were discussed with the patient. All questions were answered, and informed consent was obtained. Prior Anticoagulants: The patient has taken no previous anticoagulant or antiplatelet agents. ASA Grade Assessment: III - A patient with severe systemic disease. After reviewing the risks and benefits, the patient was deemed in satisfactory condition to undergo the procedure. After obtaining informed consent, the endoscope was passed under direct vision. Throughout the procedure, the patient's blood pressure, pulse, and oxygen saturations were monitored continuously. The scope was introduced through the mouth, and advanced to the jejunum. The upper GI endoscopy was accomplished without difficulty. The patient tolerated the procedure well. The upper GI endoscopy was accomplished without difficulty. The patient tolerated the procedure well. Findings: The examined esophagus was normal. The Z-line was irregular and was found 37 cm from the incisors. The entire examined stomach was normal. The gastric body and gastric antrum were normal. Biopsies were taken with a cold forceps for histology. Estimated blood loss: none. The examined duodenum was normal. Biopsies for histology were taken with a cold forceps for evaluation of celiac disease. Verification of patient identification for the specimen was done by the physician and breeding technician using the patient's name and medical record number. The examined jejunum was normal. The cardia and gastric fundus were normal on retroflexion. Retained gastric contents are not identified on this exam. Impression: - Normal esophagus. - Z-line irregular, 37 cm from the incisors. - Normal stomach. - Normal gastric body and antrum. Biopsied. - Normal examined duodenum. Biopsied. - Normal examined jejunum. Recommendation: - Return patient to hospital [facility] for ongoing care. - Advance diet as tolerated. - Await pathology results. MD Romero Dhillon MD 09/03/2016 3:09:40 PM This report has been signed electronically. Note Initiated On: 09/03/2016 2:11 PM I attest to the content of the Intraoperative Record and orders documented therein, exceptions below
[2016-09-04] VITALS: O2SAT 95
[2016-09-04 03:31] VITALS: BP 182/70; PULSE 70; TEMP 36.7; O2SAT 97
[2016-09-04] MEDS: HydrALAZINE HCL 20 MG/ML VIAL IV. PRN (03:48)
[2016-09-04 04:00] VITALS: O2SAT 97
[2016-09-04 06:05] LABS: BASO % 0.2 %; BASO ABS # 0.01 K/uL (0-0.2); COMPLETE YES; HEMATOCRIT 31.6 % (37-47); IG% 0.6 %; LYMPH ABS # 0.91 K/uL (1.2-3.4); MEAN CELL VOLUME 93.2 fL (80-100); MEAN CORPUSCULAR HEMOGLOBIN 31.6 pg (25-34); MEAN CORPUSCULAR HGB CONC 33.9 g/dl (32-36); MEAN PLATELET VOLUME 9.8 fL (7.4-10.4); MONO % 9.9 %; NEUT % 70.3 %; PLATELET COUNT 191 K/uL (130-400); RED BLOOD COUNT 3.39 M/uL (4.2-5.4); WHITE BLOOD COUNT 5.05 K/uL (4.8-10.8)
[2016-09-04 06:33] LABS: BUN/CREATININE RATIO 15.1 (10-20); CALCIUM 8.8 mg/dl (8.5-10.1); CREATININE 0.78 mg/dl (0.60-1.20); POTASSIUM 3.8 mmol/L (3.5-5.1)
[2016-09-04 07:16] VITALS: BP_SYST 165; BP_SYST 175; BP_DIAS 67; BP_DIAS 71; PULSE 74; TEMP 36.6; O2SAT 98
[2016-09-04] MEDS: ACETAMINOPHEN 325 MG TAB PO PRN (07:54)
[2016-09-04] MEDS: CARBIDOPA/LEVODOPA 25/100MG TAB PO SCH (07:55)
[2016-09-04] MEDS: CALCIUM CARBONATE 1250MG TAB PO SCH (08:03)
[2016-09-04] MEDS: METOPROLOL SUCC 25MG EXT REL TAB PO SCH (08:04)
[2016-09-04] MEDS: THIAMINE HCL 100 MG TAB PO SCH (08:05)
[2016-09-04] MEDS: PANTOprazole SOD 40 MG TAB PO SCH (08:05)
[2016-09-04] MEDS: CHOLECALCIFEROL 1000 INTER.UNIT TAB PO SCH (08:06)
[2016-09-04] MEDS: ESCITALOPRAM OXALATE 10 MG TAB PO SCH (08:06)
[2016-09-04] MEDS: VITAMIN B COMPLEX TAB PO SCH (08:06)
[2016-09-04 10:49] VITALS: BP 155/74; PULSE 74; TEMP 36.6; O2SAT 97
[2016-09-04] MEDS ORDERED: TPRSR25 PO (12:05)
--- NOTE | 2016-09-04 12:17 | Discharge Instructions ---
Discharge Instructions Date of Service Sep 04, 2016. Admission Reason for Admission: Gi Bleed, Sob Discharge Discharge Diagnosis / Problem: GI bleed, shortness of breath Discharge Goals Goal(s): Decrease discomfort, Improve function, Diagnostic testing, Therapeutic intervention Activity Recommendations Activity Level: Assistance Required Therapies: Physical Therapy, Occupational Therapy Exercise/Sports Limitations: as tolerated Shower/Bathe: no limitations . Additional Information Patient informed of condition: Yes Advance Directives: Yes DNR: Yes Level of Care: Skilled Communicable Disease: No Prognosis: Stable Ellison Catheter: No Instructions / Follow-Up Instructions / Follow-Up You were admitted to the hospital with shortness of breath and maroon-colored stools. Your stool was tested and was positive for blood. You were monitored on the telemetry unit, which did not reveal any abnormal/irregular heart rhythms. Cardiac enzymes were checked serially and were normal/negative. EKGs did not show any acute changes. Gastroenterology was consulted, and both an upper endoscopy and colonoscopy were performed. Biopsies were taken from upper endoscopy, and those results are still pending. The colonoscopy revealed non- bleeding internal hemorrhoids. Your blood counts (hemoglobin) has remained stable, and you are no longer bleeding per rectum. As you are now tolerating an oral diet well and your shortness of breath has improved, you are stable for discharge. Physical therapy recommended that you go to an inpatient rehab facility prior to returning to independent living. You have been accepted at [facility] for a short stay. Medications: *Your metoprolol dose has been increased to 37.5 mg by mouth once a day. *Continue your other home medications as prescribed. Follow up: *Follow up with your primary care provider within 1 week regarding your hospital stay. Please seek medical attention if you experience fevers, chills, sweats, dizziness/lightheadedness, loss of consciousness, fall, chest pain, shortness of breath, nausea, vomiting, numbness or tingling. Current Hospital Diet Patient's current hospital diet: AHA Diet (Heart Healthy) Discharge Diet Recommended Diet: AHA Diet (Heart Healthy) Procedures Procedures Performed: BX DUODENUM, BX GASTRIC ANTRUM BODY, EGD, colonoscopy Pending Studies Studies pending at discharge: yes List of pending studies: Biopsies pending Physician Orders On Transfer Special Precautions: Fall precautions Vital Signs: Routine Additional Orders: Hold metoprolol if HR less than 60 or SBP less than 100. Monitor stools for any bleeding. Medical Emergencies . Who to Call and When: Medical Emergencies: If at any time you feel your situation is an emergency, please call 911 immediately. . Non-Emergent Contact Non-Emergency issues call your: Primary Care Provider Call Non-Emergent contact if: you have a fever, you have any medication questions . Past History Medical & Surgical History: (1) GI bleed (2) SOB (shortness of breath) . "Provider Documentation" section prepared by Pamela Pagan. . Core Measure Problem Core Measures: None
[2016-09-04 12:19] VITALS: BP 155/74; PULSE 74; TEMP 36.6; O2SAT 97
--- NOTE | 2016-09-04 13:54 | Discharge Summary ---
Discharge Summary Date of Service Sep 04, 2016. Discharge Summary Admission Date: Sep 01, 2016 at 15:52 Discharge Date: Sep 04, 2016 Discharge Disposition: custodial facility ([facility]) Principal Diagnosis: GI Bleed, shortness of breath Immunizations: Have You Had Influenza Vaccine: Yes History of Tetanus Vaccine?: Yes History of Pneumococcal: Yes History of Hepatitis B Vaccine: No Procedures: CHEST ONE VIEW PORTABLE CLINICAL HISTORY: CHEST PAIN dyspnea COMPARISON STUDY: 07/02/2015 FINDINGS: Mild stable cardia megaly. Lungs are clear. Diaphragms are smooth. Postoperative changes to the right shoulder and right clavicle are again noted. IMPRESSION: Chronic change. No acute process. HEAD WITHOUT CONTRAST (CT) CLINICAL HISTORY: 85 years-old Female presenting with dizziness, fall. TECHNIQUE: Multidetector CT imaging of the head was performed without the use of intravenous contrast. COMPARISON: None. CT DOSE: 1380.10 mGycm FINDINGS: Ventricles and sulci normal in size without evidence of hydrocephalus. Subtle periventricular white matter hypoattenuation, nonspecific but likely chronic small vessel ischemic change. Hypoattenuation noted in the centrum semiovale of the right frontoparietal region near the vertex also likely due to small vessel ischemic change. No mass effect or midline shift. No hemorrhage or acute territorial infarct. No extra-axial fluid collection. Paranasal sinuses and mastoid air cells clear. Calvarium intact. IMPRESSION: No acute intracranial pathology. (CHEST FOR PE) ANGIO WITH CT DOSE: 335.23 mGycm HISTORY: Chest pain dyspnea TECHNIQUE: Multiaxial CT images of the chest were performed following the intravenous administration of contrast to evaluate the pulmonary arteries. Maximal intensity projection images were also obtained. COMPARISON STUDY: None. FINDINGS: There is a normal caliber thoracic aorta with no evidence for dissection. There is no evidence for pulmonary embolus. No pleural effusions. No pneumothorax. The liver and spleen are unremarkable. No mediastinal or hilar lymphadenopathy. The central airways are patent. The lungs are clear. IMPRESSION: No evidence for pulmonary embolus. The lungs are clear. Echocardiogram: Interpretation Summary * Name: GENIE QUINONES Study Date: 09/02/2016 06:23 AM BP: 158/84 mmHg * Patient Location: C.2T\S\E219\S\1 HR: 67 * : 1930 (M/d/yyyy) Gender: Female Height: 62 in * Age: 85 yrs Ethnicity: CA Weight: 113 lb * Ordering Physician: Jamia Bhatt * Referring Physician: Self, Referred * Performed By: Kandace Nunez RCS * * Reason For Study: MURMUR * BSA: 1.5 m2 * -- Conclusions -- * There is moderate concentric left ventricular hypertrophy. * Left ventricular systolic function is normal. * Grade I diastolic dysfunction, (abnormal relaxation pattern). * Mild aortic regurgitation. * Mild to moderate valvular aortic stenosis. * Right ventricular systolic pressure is normal. * Compared to a study from 2014, there is now an element of aortic stenosis Procedure Details * A complete two-dimensional transthoracic echocardiogram was performed (2D, M- mode, Doppler and color flow Doppler). Left Ventricle * The left ventricle is normal in size. * There is moderate concentric left ventricular hypertrophy. * The basal septum is thickened and angulated consistent with sigmoid septum. * Ejection Fraction = 50-55%. * Left ventricular systolic function is normal. * Grade I diastolic dysfunction, (abnormal relaxation pattern). Right Ventricle * The right ventricle is grossly normal size. * The right ventricular systolic function is normal. Atria * The left atrial size is normal. * Right atrial size is normal. Mitral Valve * The mitral valve is grossly normal. * Significant mitral regurgitation is absent. Tricuspid Valve * The tricuspid valve anatomy is normal. * There is mild tricuspid regurgitation. * Right ventricular systolic pressure is normal. Aortic Valve * The aortic valve is trileaflet. * Mild to moderate valvular aortic stenosis. * Mild aortic regurgitation. Great Vessels * The aortic root is normal size. Pericardium/Pleural * There is no pericardial effusion. Great Vessels Normal inferior vena cava diameter and respiratory variation suggests normal central venous pressure. Procedure Date: 09/03/2016 2:11 PM Procedure: Upper GI endoscopy Indications: Iron deficiency anemia secondary to chronic blood loss, Weight loss Medicines: Propofol per Anesthesia Complications: No immediate complications. Estimated blood loss: Minimal. Estimated Blood Loss: Estimated blood loss was minimal. Procedure: Pre-Anesthesia Assessment: - Prior to the procedure, a History and Physical was performed, and patient medications and allergies were reviewed. The patient's tolerance of previous anesthesia was also reviewed. The risks and benefits of the procedure and the sedation options and risks were discussed with the patient. All questions were answered, and informed consent was obtained. Prior Anticoagulants: The patient has taken no previous anticoagulant or antiplatelet agents. ASA Grade Assessment: III - A patient with severe systemic disease. After reviewing the risks and benefits, the patient was deemed in satisfactory condition to undergo the procedure. After obtaining informed consent, the endoscope was passed under direct vision. Throughout the procedure, the patient's blood pressure, pulse, and oxygen saturations were monitored continuously. The scope was introduced through the mouth, and advanced to the jejunum. The upper GI endoscopy was accomplished without difficulty. The patient tolerated the procedure well. The upper GI endoscopy was accomplished without difficulty. The patient tolerated the procedure well. Findings: The examined esophagus was normal. The Z-line was irregular and was found 37 cm from the incisors. The entire examined stomach was normal. The gastric body and gastric antrum were normal. Biopsies were taken with a cold forceps for histology. Estimated blood loss: none. The examined duodenum was normal. Biopsies for histology were taken with a cold forceps for evaluation of celiac disease. Verification of patient identification for the specimen was done by the physician and office automation technician using the patient's name and medical record number. The examined jejunum was normal. The cardia and gastric fundus were normal on retroflexion. Retained gastric contents are not identified on this exam. Impression: - Normal esophagus. - Z-line irregular, 37 cm from the incisors. - Normal stomach. - Normal gastric body and antrum. Biopsied. - Normal examined duodenum. Biopsied. - Normal examined jejunum. Recommendation: - Return patient to [facility] for ongoing care. - Advance diet as tolerated. - Await pathology results. Procedure Date: 09/03/2016 2:29 PM Procedure: Colonoscopy Indications: Hematochezia, Iron deficiency anemia secondary to chronic blood loss Medicines: Propofol per Anesthesia Complications: No immediate complications. Estimated blood loss: None. Estimated Blood Loss: Estimated blood loss: none. Procedure: Pre-Anesthesia Assessment: - Prior to the procedure, a History and Physical was performed, and patient medications and allergies were reviewed. The patient's tolerance of previous anesthesia was also reviewed. The risks and benefits of the procedure and the sedation options and risks were discussed with the patient. All questions were answered, and informed consent was obtained. Prior Anticoagulants: The patient has taken no previous anticoagulant or antiplatelet agents. ASA Grade Assessment: III - A patient with severe systemic disease. After reviewing the risks and benefits, the patient was deemed in satisfactory condition to undergo the procedure. After I obtained informed consent, the scope was passed under direct vision. Throughout the procedure, the patient's blood pressure, pulse, and oxygen saturations were monitored continuously. The scope was introduced through the anus and advanced to the terminal ileum, with identification of the appendiceal orifice and IC valve. The colonoscopy was performed without difficulty. The patient tolerated the procedure well. The quality of the bowel preparation was fair. Findings: The perianal and digital rectal examinations were normal. Pertinent negatives include normal sphincter tone, no palpable rectal lesions and no anal lesion or abnormality was detected. The terminal ileum appeared normal. Many small-mouthed diverticula were found in the entire colon. The exam was otherwise without abnormality. Non-bleeding internal hemorrhoids were found during retroflexion. The hemorrhoids were mild and small. Impression: - The examined portion of the ileum was normal. - Diverticulosis in the entire examined colon. - The examination was otherwise normal. - Non-bleeding internal hemorrhoids. - No specimens collected. Recommendation: - Return patient to hospital [facility] for ongoing care. - Advance diet as tolerated. - Continue present medications. Consultations: Gastroenterology--Dr. Brewer Medication Reconciliation New Medications: Metoprolol Succinate (Metoprolol Succinate ER) 25 Mg Tabcr 37.5 MG PO QAM for 30 Days, #45 TABS Continued Medications: Acetaminophen (Tylenol Arthritis Ext Rel) 650 Mg Cplt 650 MG PO TID, CAP B-Complex Vitamins (Vitamin B Complex) 1 Tab Tab 1 TAB PO QAM Calcium Carbonate (Calcium) 600 Mg Tab 600 MG PO QAM Carbidopa/Levodopa (Sinemet 25MG/100MG) Tab 2 TAB PO TID, TAB PT TAKES @ 0700,1200 & 1700 Cholecalciferol (Vitamin D3) 1,000 Unit Tab 1000 INTER.UNIT PO DAILY for 90 Days, TAB 3 Refills Docusate Sodium (Colace) 100 Mg Cap 1 CAP PO BID for 30 Days, #60 CAP Escitalopram (Lexapro) 10 Mg Tab 20 MG PO QAM, TAB Naproxen (Aleve) 220 Mg Tab 220 MG PO Q12 PRN for Pain, TAB Pantoprazole (Protonix) 40 Mg Tab 40 MG PO QAM, #30 TAB Thiamine Hcl (Vitamin B-1) 100 Mg Tab 100 MG PO DAILY, TAB Discontinued Medications: Metoprolol Succ (Toprol Xl) (Toprol-Xl) 25 Mg Tabcr 25 MG PO QAM, 0 Refills Referrals At Discharge Follow up Referrals: Family Practice Referral - Within 1 Week with Levi Jennings M.D. Discharge Exam Patient reports feeling well. She has not yet had a bowel movement since her colonoscopy yesterday afternoon. She denies seeing any bleeding per rectum. She is tolerating a regular PO diet well. She denies any urinary symptoms. She denies any shortness of breath at rest, but she does admit to occasional dyspnea on exertion. The patient denies fevers, chills, sweats, chest pain, palpitations, claudication, cough, wheezing, shortness of breath, nausea, vomiting, abdominal pain, dysuria, hematuria, urinary retention, paralysis, weakness, numbness and tingling. Review of Systems: Constitutional: No fever, No chills, No sweats Eyes: No worsening of vision, No eye pain, No diplopia ENT: No hearing loss, No sore throat, No trouble swallowing Respiratory: + dyspnea on exertion (occasional), No cough, No wheezing, No shortness of breath Cardiovascular: No chest pain, No claudication, No palpitations Abdomen: No pain, No nausea, No vomiting Musculoskeletal: No joint pain, No muscle pain, No swelling Genitourinary - Female: No dysuria, No urinary retention, No hematuria Neurologic: No paralysis, No weakness, No numbness/tingling Integumentary: No rash, No itch, No color change Physical Exam: General Appearance: WD/WN, no apparent distress Eyes: normal inspection, PERRL, EOMI ENT: normal ENT inspection, hearing grossly normal, pharynx normal Neck: supple, no JVD, trachea midline Respiratory/Chest: lungs clear, normal breath sounds, no respiratory distress Cardiovascular: regular rate, rhythm, no gallop, + systolic murmur Abdomen / GI: normal bowel sounds, non tender, soft Extremities: normal inspection, no calf tenderness, no pedal edema Neurologic/Psychiatric: alert, normal mood/affect, oriented x 3 Skin: normal color, warm/dry, no rash Hospital Course 85 y/o female with a history of Parkinson's disease, HTN, HLD, depression, osteoarthritis, Vit D deficiency, Vit B deficiency, low back pain, gait disturbance, peripheral neuropathy, and bilateral TKAs, R hip replacement and R shoulder replacement who presents with maroon colored stools x 3 days which were heme positive, along with shortness of breath. Generalized weakness, GI bleed--ongoing - Admit to telemetry. No acute events overnight. Pt in sinus rhythm, HR 70s- 80s - Troponin negative x 3 - EKG was reviewed and appears to be without any acute ischemia or ST wave inversions. - Consult GI, appreciate recs: EGD/colonoscopy performed 09/03. Pathology pending. - EGD shows irregular Z line. Biopsies taken, pathology is pending. - Colonoscopy shows diverticulosis and nonbleeding internal hemorrhoids. - Tolerating regular PO diet - Hgb remains stable. Appears to be around baseline of 10 - Continue Protonix 40 mg PO qd - Zofran 4 mg IV q6h prn nausea Syncopal episode--resolved -No further events Hx frequent falls - PT/OT evals: recommend acute rehab. Pt reluctantly agrees to go to [facility] - Pt from independent side at the [facility] Hypertension--stable now. Had been hypertensive on arrival, then hypotensive. Hypotension resolved with 1L NSS bolus - BP moderately elevated in the 170/75 and peaked at 210s/80s, likely secondary to anxiety - Hydralazine 10 mg IV prn for SBP > 180 or DBP > 110 - Metoprolol increased to 37.5 mg PO qd Shortness of breath--resolved - PT reports this has been worsening over the past few months - Chest x-ray reviewed and is negative for any acute findings - Does not require supplemental oxygen at baseline, currently O2 sats are 97% on room air Parkinson's disease - Continue Sinemet 25/100 mg 2 tabs TID - Follows with Dr. Nogueira has an outpatient Hx of bilateral TKA, right shoulder replacement, right hip replacement - Most recently saw Dr. Fabian for right knee revision in 2015 - Shoulder replaced by Dr. Schmitt in 2016 Depression - Continue Lexapro 20 mg daily Chronic low back pain - She takes Tylenol as an outpatient, but avoid tramadol as this has caused severe confusion for the patient in previous trials. Vitamin D deficiency, Vitamin B deficiency - Continue supplementation DVT prophylaxis -Hold chemical prophylaxis due to GI bleed -[facility] [place] Code Status -Level V, DO NOT RESUSCITATE Total Time Spent: Greater than 30 minutes This includes examination of the patient, discharge planning, medication reconciliation, and communication with other providers. Discharge Instructions Please refer to the electronic Patient Visit Report (Discharge Instructions) for additional information. Additional Copies To Levi Jennings M.D.; [facility]
== END 2016-09-04 13:35 | DRG 379 ==
LOC: C.EDA 11:48 → EDBD 11:48 → C.2T 15:52 → ENRESERV 16:05
PROVIDERS: ADMIT Family Medicine; ATTEND Hospitalist
PROC: 0DJD8ZZ Inspection of Lower Intestinal Tract, Via Natural or Artificial Opening Endoscopic (ICD-10-PCS; principal; 2016-09-03 13:28)
PROC: 0DB98ZX Excision of Duodenum, Via Natural or Artificial Opening Endoscopic, Diagnostic (ICD-10-PCS; 2016-09-03 13:28)
PROC: 0DB68ZX Excision of Stomach, Via Natural or Artificial Opening Endoscopic, Diagnostic (ICD-10-PCS; 2016-09-03 13:28)
DX: K92.2 Gastrointestinal hemorrhage, unspecified (principal); I10 Essential (primary) hypertension; I16.0 Hypertensive urgency; G20 Parkinson's disease; E78.5 Hyperlipidemia, unspecified; F32.9 Major depressive disorder, single episode, unspecified; M19.90 Unspecified osteoarthritis, unspecified site; G62.9 Polyneuropathy, unspecified; D50.0 Iron deficiency anemia secondary to blood loss (chronic); R33.9 Retention of urine, unspecified; K64.8 Other hemorrhoids; K57.30 Diverticulosis of large intestine without perforation or abscess without bleeding; G89.29 Other chronic pain; M54.5 Low back pain; Z66 Do not resuscitate; R26.9 Unspecified abnormalities of gait and mobility; E53.9 Vitamin B deficiency, unspecified; E55.9 Vitamin D deficiency, unspecified; Z79.899 Other long term (current) drug therapy; Z96.653 Presence of artificial knee joint, bilateral; Z96.641 Presence of right artificial hip joint; Z96.611 Presence of right artificial shoulder joint; Z88.6 Allergy status to analgesic agent; Z91.048 Other nonmedicinal substance allergy status; Z88.8 Allergy status to other drugs, medicaments and biological substances

== ENCOUNTER 2016-10-23 09:16 | Emergency (ER) | payer OTHER, BC ==
[~2016-10-23] VITALS: Ht 157.5 cm; Wt 51.0 kg
[~2016-10-23 09:16] MED LIST changes: +CHOL1000 PO; -MENT5PAD4 TOP; -METO25TA3 PO; +TPRSR25 PO
[2016-10-23 09:25] VITALS: TEMP 36.8; Ht 157.5 cm; Wt 51.0 kg
[2016-10-23] MEDS ORDERED: MCRK20 PO (09:49)
[2016-10-23] MEDS ORDERED: SIMV40TA2 PO (09:49)
[2016-10-23] MEDS ORDERED: HYDR-5688 PO (09:49)
[2016-10-23] MEDS ORDERED: METO25TA3 PO (09:49)
[2016-10-23] MEDS ORDERED: POLY335019 PO (09:49)
[2016-10-23] MEDS ORDERED: SODIUM CHLORIDE 0.9% 1000ML 1,000 ML IV STA ×2 (10:17→14:59)
--- NOTE | 2016-10-23 10:18 | EMERGENCY ROOM VISIT NOTE ---
History Report prepared by Jose: Madisyn Ortiz Under the Supervision of: Dr. Fred Vanessa M.D. First contact with patient: 10:05 Chief Complaint: ILLNESS Stated Complaint: HEAD PAIN/DIZZINESS History of Present Illness The patient is a 86 year old female who presents to the Emergency Room with complaints of an episode of dizziness when standing up that occurred this morning. She also feels short of breath and lightheaded. She denies any fever, chills, nausea, vomiting, or chest pain. The patient is not dizzy currently when sitting up in bed. The patient is not on water pills or any blood thinners Source of History: patient Onset: this morning Quality: other (dizziness) Timing: other (episode) Associated Symptoms: + SOB, No fevers, No chills, No chest pain, No nausea, No vomiting Note: pt notes feeling lightheaded. Review of Systems See HPI for pertinent positives and negatives. A total of ten systems were reviewed and were otherwise negative. 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 Surgical Problems: (1) History of arthroscopy of right shoulder (2) History of total left knee replacement (3) S/p ORIF right acromion (4) S/P tonsillectomy (5) Status post right knee replacement Family History No pertinent family history Social History Smoking Status: Never Smoker Alcohol Use: none Drug Use: none Marital Status: Housing Status: lives with family, assisted living Occupation Status: unemployed, retired Current/Historical Medications Scheduled Acetaminophen (Tylenol Arthritis Ext Rel), 650 MG PO TID B-Complex Vitamins (Vitamin B Complex), 1 TAB PO QAM Calcium Carbonate (Calcium), 600 MG PO QAM Carbidopa/Levodopa (Sinemet 25MG/100MG), 2 TAB PO TID Cholecalciferol (Vitamin D3), 1,000 INTER.UNIT PO DAILY Docusate Sodium (Colace), 1 CAP PO BID Escitalopram (Lexapro), 20 MG PO QAM Metoprolol Succ (Toprol Xl) (Toprol-Xl), 25 MG PO DAILY Pantoprazole (Protonix), 40 MG PO QAM Polyethylene Glycol 3350 (Miralax), 17 GM PO DAILY Potassium Chloride (Klor-Con M20), 20 MEQ PO DAILY Simvastatin (Zocor), 40 MG PO QPM Thiamine Hcl (Vitamin B-1), 100 MG PO DAILY Scheduled PRN Hydrocodone/Acetaminophen 5MG/325MG ([place] 5MG/325MG), 0.5 TABLET PO Q4 PRN for Pain Naproxen (Aleve), 220 MG PO Q12 PRN for Pain Allergies Coded Allergies: Tramadol (Unverified Allergy, Intermediate, "GOES CRAZY", 10/23/16) CI Pigment Blue 63 (Unverified Allergy, Unknown, ? reaction- obtained from neuro note , 10/23/16) Duloxetine (Unverified Allergy, Unknown, ? reaction- obtained from neuro note , 10/23/16) Milnacipran (Unverified Allergy, Unknown, ? reaction- obtained from neuro note , 10/23/16) Physical Exam Vital Signs Date Time Temp Pulse Resp B/P (MAP) Pulse Ox O2 Delivery O2 Flow Rate FiO2 10/23/16 15:35 74 16 219/81 98 10/23/16 15:02 80 20 210/87 96 Room Air 10/23/16 13:33 75 10/23/16 13:25 68 20 209/82 98 Room Air 10/23/16 11:35 71 20 223/85 99 Room Air 10/23/16 10:33 61 16 206/77 10/23/16 09:25 36.8 61 16 221/75 96 Room Air 10/23/16 09:25 60 Physical Exam GENERAL: Awake, alert, fatigued-appearing, in no distress HENT: Normocephalic, atraumatic. Oropharynx unremarkable. Dry MM. EYES: Normal conjunctiva. Sclera non-icteric. NECK: Supple. No nuchal rigidity. FROM. No JVD. RESPIRATORY: Clear to auscultation. CARDIAC: Regular rate, normal rhythm. Extremities warm and well perfused. Pulses equal. ABDOMEN: Soft, non-distended. No tenderness to palpation. No rebound or guarding. No masses. RECTAL: Deferred. MUSCULOSKELETAL: Chest examination reveals no tenderness. The back is symmetrical on inspection without obvious abnormality. There is no CVA tenderness to palpation. No joint edema. LOWER EXTREMITIES: Calves are equal size bilaterally and non-tender. No edema. No discoloration. NEURO: Normal sensorium. No sensory or motor deficits noted. SKIN: No rash or jaundice noted. Medical Decision & Procedures ER Provider Diagnostic Interpretation: Radiology results as stated below per my review and radiologist interpretation: CHEST ONE VIEW PORTABLE FINDINGS: The heart remains mildly enlarged. There is no focal pulmonary consolidation. There is no overt failure. Postsurgical changes involve the right shoulder and right acromial clavicular joint.[ A few linear opacities at the right lung base are likely atelectatic. IMPRESSION: Mild cardiomegaly. No evidence of overt failure. No evidence of focal pulmonary consolidation. Electronically signed by: Christiano Hart M.D. CT OF THE HEAD WITHOUT CONTRAST FINDINGS: No acute intracranial hemorrhage, midline shift or mass effect is present. Ventricular system is normal. Basilar cisterns are patent. There are no extra-axial collections. White matter hypodensity suggests small vessel disease. There are no findings to suggest acute dural sinus thrombosis or acute territorial infarct. There are are no significant calvarial abnormalities. Visualized portions of the sinuses and mastoid air cells are clear. IMPRESSION: No acute intracranial findings. Electronically signed by: Juancho Rock M.D. Laboratory Results 10/23/16 10:15 Red Blood Count 3.61, Mean Corpuscular Volume 92.0, Mean Corpuscular Hemoglobin 31.0, Mean Corpuscular Hemoglobin Concent 33.7, Mean Platelet Volume 10.1, Neutrophils (%) (Auto) 73.6, Lymphocytes (%) (Auto) 16.7, Monocytes (%) (Auto) 8.2, Eosinophils (%) (Auto) 0.9, Basophils (%) (Auto) 0.2, Neutrophils # (Auto) 4.11, Lymphocytes # (Auto) 0.93, Monocytes # (Auto) 0.46, Eosinophils # (Auto) 0.05, Basophils # (Auto) 0.01 10/23/16 10:15 Test 10/23/16 10:15 10/23/16 11:35 10/23/16 14:07 White Blood Count 5.58 K/uL (4.8-10.8) Red Blood Count 3.61 M/uL (4.2-5.4) Hemoglobin 11.2 g/dL (12.0-16.0) Hematocrit 33.2 % (37-47) Mean Corpuscular Volume 92.0 fL (80-100) Mean Corpuscular Hemoglobin 31.0 pg (25-34) Mean Corpuscular Hemoglobin Concent 33.7 g/dl (32-36) Platelet Count 176 K/uL (130-400) Mean Platelet Volume 10.1 fL (7.4-10.4) Neutrophils (%) (Auto) 73.6 % Lymphocytes (%) (Auto) 16.7 % Monocytes (%) (Auto) 8.2 % Eosinophils (%) (Auto) 0.9 % Basophils (%) (Auto) 0.2 % Neutrophils # (Auto) 4.11 K/uL (1.4-6.5) Lymphocytes # (Auto) 0.93 K/uL (1.2-3.4) Monocytes # (Auto) 0.46 K/uL (0.11-0.59) Eosinophils # (Auto) 0.05 K/uL (0-0.5) Basophils # (Auto) 0.01 K/uL (0-0.2) RDW Standard Deviation 43.3 fL (36.4-46.3) RDW Coefficient of Variation 12.7 % (11.5-14.5) Immature Granulocyte % (Auto) 0.4 % Immature Granulocyte # (Auto) 0.02 K/uL (0.00-0.02) Anion Gap 5.0 mmol/L (3-11) Est Creatinine Clear Calc Drug Dose 41.0 ml/min Estimated GFR () 79.8 Estimated GFR (Non- 68.8 BUN/Creatinine Ratio 34.1 (10-20) Calcium Level 8.6 mg/dl (8.5-10.1) Total Bilirubin 0.5 mg/dl (0.2-1) Aspartate Amino Transf (AST/SGOT) 20 U/L (15-37) Alanine Aminotransferase (ALT/SGPT) 7 U/L (12-78) Alkaline Phosphatase 101 U/L (45-117) Total Creatine Kinase 86 U/L (26-192) Creatine Kinase MB 2.4 ng/ml (0.5-3.6) Creatine Kinase MB Ratio 2.8 (0-3.0) Total Protein 6.3 gm/dl (6.4-8.2) Albumin 3.6 gm/dl (3.4-5.0) Globulin 2.7 gm/dl (2.5-4.0) Albumin/Globulin Ratio 1.3 (0.9-2) Thyroid Stimulating Hormone (TSH) 1.210 uIu/ml (0.300-4.500) Urine Color YELLOW Urine Appearance CLEAR (CLEAR) Urine pH 7.0 (4.5-7.5) Urine Specific [place] 1.007 (1.000-1.030) Urine Protein NEG (NEG) Urine Glucose (UA) NEG (NEG) Urine Ketones NEG (NEG) Urine Occult Blood NEG (NEG) Urine Nitrite NEG (NEG) Urine Bilirubin NEG (NEG) Urine Urobilinogen NEG (NEG) Urine Leukocyte Esterase NEG (NEG) Urine WBC (Auto) 0 /hpf (0-5) Urine RBC (Auto) 0-4 /hpf (0-4) Urine Hyaline Casts (Auto) 0 /lpf (0-5) Urine Epithelial Cells (Auto) 0-5 /lpf (0-5) Urine Bacteria (Auto) NEG (NEG) Troponin I < 0.015 ng/ml (0-0.045) Laboratory results reviewed by me Medications Administered Medications (Trade) Dose Ordered Sig/Genet Route Start Time Stop Time Status Last Admin Dose Admin Sodium Chloride 1,000 ml @ 999 mls/hr Q1H1M STAT IV 10/23/16 10:17 10/23/16 11:17 DC 10/23/16 10:17 999 MLS/HR Metoprolol Succinate (Toprol Xl Tab) 25 mg NOW STAT PO 10/23/16 13:56 10/23/16 13:58 DC 10/23/16 14:16 25 MG ECG Indication: other (dizziness) Rate (beats per minute): 60 Rhythm: normal sinus Findings: no acute ischemic change, other (Non-specific ST abnormality, normal axis) Comparison ECG Date: Repeat is unchanged ED Course 1012: The patient was evaluated in room A3. A complete history and physical exam was performed. 1017: Sodium Chloride 1000 ml @ 999 mls/hr IV. 1356: Toprol XI Tab 25 mg PO. 1459: Sodium Chloride 1000 ml @ 999 mls/hr IV. 1524: I reevaluated the patient, she wants to go home. 1542: I reevaluated the patient. Discussed results and discharge instructions: She verbalized understanding and agreement. The patient is ready for discharge. Medical Decision I reviewed the patient's past medical history, medications, and the nursing notes as described above.Differential diagnosis: pneumonia, bronchitis, UTI, dehydration, electrolyte imbalance, stroke, and ICH. Patient is an 86-year-old woman with a past medical history of hypertension presents to the emergency Department with complaints of fatigue and lightheadedness when standing per history of present illness. Arrival the patient appears fatigued but in no acute distress, afebrile, hypertensive but with stable vital signs. EKG was unremarkable. Troponin negative. Labs otherwise unremarkable including negative UA. BUN/cr > 20 systolic patient's clinically dry appearance. Patient is given IV fluids with moderate improvement in her symptoms. Delta troponin and EKG were performed and were unchanged after 4 hours. Chest x-ray negative. Patient was reassessed while feeling improved still reported some lightheadedness when ambulating although she had a steady gait. In this setting patient was recommended admission for further observation and hydration. However, patient declined this and preferred discharge home. Considering the patient was still reporting some symptoms and lived alone I still recommended she stay. Patient preferred to leave AGAINST MEDICAL ADVICE. The patient demonstrated full capacity for this decision and I explained that by leaving AMA she is at the risk for a worse condition, disability and . Patient expressed understanding and was discharged AMA per instructions. Medication Reconcilliation Current Medication List: was personally reviewed by me Blood Pressure Screening Patient's blood pressure: Elevated blood pressure Blood pressure disposition: Referred to PCP Impression Primary Impression: Dizziness Additional Impression: Dehydration Scribe Attestation The scribe's documentation has been prepared under my direction and personally reviewed by me in its entirety. I confirm that the note above accurately reflects all work, treatment, procedures, and medical decision making performed by me. Departure Information Referrals [facility] (PCP) Patient Instructions Dehydration, Dizziness Fainting Poss Causes, My [facility] Additional Instructions Please follow up with your primary care physician in the next 1-3 days for re- evaluation. Your evaluation shows a your mildly dehydrated. You felt improvement but still reported some mild lightheadedness. Thus, we recommended admission for observation and hydration but you declined AGAINST MEDICAL ADVICE. Please note by leaving AGAINST MEDICAL ADVICE you risk a worse condition, disability and . However, if you change your mind or have worsening symptoms please feel free to return to the emergency department at any time, we are open 24 hours a day and 7 days a week. Otherwise, your exam, lab results, EKG, chest xray, and CT scan did not show signs of an emergent condition at this time. Return to the emergency department for worsening symptoms as described in the accompanying instructions. Problem Qualifiers
--- NOTE | 2016-10-23 10:30 | DIAGNOSTIC IMAGING REPORT ---
CHEST ONE VIEW PORTABLE CLINICAL HISTORY: SOB DIZZINESS COMPARISON STUDY: 09/01/2016 FINDINGS: The heart remains mildly enlarged. There is no focal pulmonary consolidation. There is no overt failure. Postsurgical changes involve the right shoulder and right acromial clavicular joint.[ A few linear opacities at the right lung base are likely atelectatic. IMPRESSION: Mild cardiomegaly. No evidence of overt failure. No evidence of focal pulmonary consolidation. Electronically signed by: Christiano Hart M.D. 10/23/2016 10:29 AM Dictated Date/Time: 10/23/2016 10:28 AM
[2016-10-23 10:38] LABS: BASO % 0.2 %; BASO ABS # 0.01 K/uL (0-0.2); COMPLETE YES; EOS % 0.9 %; HEMATOCRIT 33.2 % (37-47); IG% 0.4 %; LYMPH % 16.7 %; LYMPH ABS # 0.93 K/uL (1.2-3.4); MEAN CORPUSCULAR HGB CONC 33.7 g/dl (32-36); MEAN PLATELET VOLUME 10.1 fL (7.4-10.4); MONO % 8.2 %; NEUT % 73.6 %; PLATELET COUNT 176 K/uL (130-400); RED BLOOD COUNT 3.61 M/uL (4.2-5.4); WHITE BLOOD COUNT 5.58 K/uL (4.8-10.8)
[2016-10-23 11:00] LABS: BLOOD UREA NITROGEN 27 mg/dl (7-18); CREATININE 0.78 mg/dl (0.60-1.20); GLUCOSE 86 mg/dl (70-99)
[2016-10-23 11:01] LABS: ALT/SGPT 7 U/L (12-78); AST/SGOT 20 U/L (15-37); BUN/CREATININE RATIO 34.1 (10-20); CALCIUM 8.6 mg/dl (8.5-10.1); CARBON DIOXIDE 29 mmol/L (21-32); CHLORIDE 107 mmol/L (98-107); POTASSIUM 4.1 mmol/L (3.5-5.1); SODIUM 141 mmol/L (136-145)
[2016-10-23 11:11] LABS: ALB/GLOB RATIO 1.3 (0.9-2); ALKALINE PHOSPHATASE 101 U/L (45-117); CKMB/CK RATIO 2.8 (0-3.0)
--- NOTE | 2016-10-23 11:30 | DIAGNOSTIC IMAGING REPORT ---
CT OF THE HEAD WITHOUT CONTRAST CLINICAL HISTORY: Head pain, dizziness, hypertensive. COMPARISON STUDY: Head CT September 01, 2016. CT DOSE: 638.56 mGycm TECHNIQUE: Helical axial images of the head were obtained without IV contrast. Automated exposure control was utilized for the study. A dose lowering technique was utilized adhering to the principles of ALARA. FINDINGS: No acute intracranial hemorrhage, midline shift or mass effect is present. Ventricular system is normal. Basilar cisterns are patent. There are no extra-axial collections. White matter hypodensity suggests small vessel disease. There are no findings to suggest acute dural sinus thrombosis or acute territorial infarct. There are are no significant calvarial abnormalities. Visualized portions of the sinuses and mastoid air cells are clear. IMPRESSION: No acute intracranial findings. Electronically signed by: Juancho Rock M.D. 10/23/2016 11:29 AM Dictated Date/Time: 10/23/2016 11:27 AM
[2016-10-23 11:57] LABS: URINE APPEARANCE CLEAR (CLEAR); URINE BILIRUBIN NEG (NEG); URINE COLOR YELLOW; URINE EPITHELIAL CELL AUTO 0-5 /lpf (0-5); URINE NITRITE NEG (NEG); URINE SPECIFIC GRAVITY 1.007 (1.000-1.030); UROBILINOGEN NEG (NEG); ZZUR CULT IF INDIC CLEAN CATCH NO
[2016-10-23 12:00] LABS: MANUAL MICROSCOPIC REQUIRED? NO; REVIEW REQ? NO
[2016-10-23] MEDS ORDERED: METOPROLOL SUCC 50MG EXT REL TAB PO STA (13:56)
[2016-10-23 15:35] VITALS: BP 219/81; PULSE 74; O2SAT 98
== END 2016-10-23 15:43 | disposition left against medical advice (07) ==
LOC: EDBD 09:16 → C.EDA 09:18
DX: R42 Dizziness and giddiness (principal); E86.0 Dehydration; F41.9 Anxiety disorder, unspecified; F32.9 Major depressive disorder, single episode, unspecified; E78.5 Hyperlipidemia, unspecified; I10 Essential (primary) hypertension; M19.90 Unspecified osteoarthritis, unspecified site; G20 Parkinson's disease